=== PATIENT | male | born 1975 | race Hispanic/Latino ===

== ENCOUNTER 2018-10-09 10:24 | Emergency (ER) | payer BC ==
[~2018-10-09] VITALS: Ht 170.2 cm; Wt 150.6 kg
--- NOTE | 2018-10-09 10:47 | NUR ---
called for ultrasound
--- NOTE | 2018-10-09 10:50 | NUR ---
ganesh called states 45 mins eta
[2018-10-09] MEDS ORDERED: HYDROCODONE/APAP 5MG-325MG TAB PO STA (11:25)
--- NOTE | 2018-10-09 11:26 | NUR ---
out to desk multiple times and updated in room and at desk multiple times. explained plan of care multiple times and continues to inquire same questions. again explained plan of care in detail and times and updates. wants pain med for patient and md notified and states will order medicine.
[2018-10-09] MEDS ORDERED: VANCOMYCIN 1GM/NS 250 ML 250 ML IV ONE (12:45)
[2018-10-09] MEDS ORDERED: SODIUM CHLORIDE 0.9% 1000ML 1,000 ML IV SCH (12:45)
[2018-10-09] MEDS ORDERED: PIPER-TAZ 3.375 GM 50 ML IV ONE (12:45)
--- NOTE | 2018-10-09 12:55 | Diagnostic Imaging Report ---
Limited right lower extremity venous ultrasound. COMPARISON: None. INDICATION: Right leg pain. TECHNIQUE/FINDINGS: Markedly limited evaluation with poor visualization of the right superficial and deep femoral veins and common femoral vein. Right GSV is patent with Doppler waveform. Waveform with augmentation is seen within the right common femoral vein, popliteal vein, and anterior and posterior tibial veins. There is an irregular appearing likely lymph node within the right inguinal region measuring up to 1.4 cm short axis. There is diffuse soft tissue edema. IMPRESSION Nondiagnostic study for evaluation of right lower extremity DVT due to body habitus. If there is clinical suspicion for thrombus, CT venogram may be obtained for further evaluation. Irregular appearing likely lymph node measuring up to 1.4 cm short axis in the right inguinal region. This can be further assessed on CT venogram. Diffuse soft tissue edema, suggestive of cellulitis. Signed by: Dr. Dory Schaeffer MD on 10/09/2018 12:51 PM
--- NOTE | 2018-10-09 13:00 | NUR ---
[facility] CALLED FOR TRANSPORT
--- NOTE | 2018-10-09 13:15 | NUR ---
MOT BEING DONE.
== END 2018-10-09 14:53 | disposition short-term general hospital (02) ==
LOC: FSED 10:24
DX: M79.661 Pain in right lower leg (principal); L03.115 Cellulitis of right lower limb; R26.2 Difficulty in walking, not elsewhere classified; L40.9 Psoriasis, unspecified
CPT/HCPCS: 80053; 85025; 87040; 93971 ×2; 99284; J2543; J3370; J7030

== ENCOUNTER 2020-01-05 08:10 | Emergency (ER) | payer BC ==
[~2020-01-05] VITALS: Ht 167.6 cm; Wt 149.7 kg
--- OUTSIDE RECORDS SUMMARY | 2020-01-05 08:13 | XMS REPORT | Summary of Care ---
Author Author [facility] Organization [facility] Address Unknown Phone Unavailable Encounter HQ Juanita(KORIN) [id number] Date(s): 05/16/19 - 05/16/19 [facility] [address] [place] [address]- [phone] Discharge Disposition: Home or Self Care Attending Physician: Luma Chawla MD Referring Physician: Luma Chawla MD Vital Signs Most recent to 1 oldest [Reference Range]: Height 167.64 cm (05/16/19 11:35 AM) Weight 145.455 kg (05/16/19 11:35 AM) Body Mass Index 51.76 m2 (05/16/19 11:35 AM) Problem List No data available for this section Allergies, Adverse Reactions, Alerts No Known Medication Allergies Medications No data available for this section Results No data available for this section Immunizations Given and Recorded Vaccine Date Status Refusal Reason tetanus-diphtheria toxoids 03/15/12 Given Procedures No data available for this section Social History Social History Type Response Smoking Status Never smoker; Exposure to T obacco Smoke None; Cigarette Smoking Last 365 Days No; Reg Smoking Cessation Counseli ng No entered on: 08/01/17 Assessment and Plan No data available for this section
--- OUTSIDE RECORDS SUMMARY | 2020-01-05 08:13 | XMS REPORT | Summary of Care ---
Author Author [facility] Organization [facility] Address Unknown Phone Unavailable Encounter DAISY Grant(KORIN) [id number] Date(s): 10/07/18 - 10/07/18 [facility] [address] [employer] provided by [facility] [employer] [facility] [place] [address]- Discharge Disposition: Left Without Being Seen Attending Physician: Maurice Simmons MD Vital Signs Most recent to 1 2 oldest [Reference Range]: Height 170.18 cm (10/07/18 6:44 PM) Temperature Oral 100.0 DegF 99.4 DegF [96.4-99.1 DegF] *HI* *HI* (10/07/18 8:16 PM) (10/07/18 6:44 PM) Blood Pressure 129/85 mmHg 148/88 mmHg [90-140/60-90 mmHg] (10/07/18 8:16 PM) *HI* (10/07/18 6:44 PM) Respiratory Rate 17 BRMIN 20 BRMIN [14-20 BRMIN] (10/07/18 8:16 PM) (10/07/18 6:44 PM) Peripheral Pulse 114 bpm 119 bpm Rate [60-100 bpm] *HI* *HI* (10/07/18 8:16 PM) (10/07/18 6:44 PM) Weight 147.727 kg (10/07/18 6:44 PM) Body Mass Index 51.01 m2 (10/07/18 6:44 PM) Problem List No data available for this section Allergies, Adverse Reactions, Alerts Substance Reaction Severity Status NKDA Active Medications No data available for this section Results ELECTROLYTES Most recent to 1 oldest [Reference Range]: Sodium Lvl [135-145 140 mEq/L mEq/L] (10/07/18 7:01 PM) Potassium Lvl 4.2 mEq/L [3.5-5.1 mEq/L] (10/07/18 7:01 PM) Chloride Lvl [95-109 103 mEq/L mEq/L] (10/07/18 7: PM) CO2 [24-32 mEq/L] 25 mEq/L (10/07/18: PM) AGAP [10.0-20.0 16.2 mEq/L mEq/L] (10/07/18: PM) CHEM PANEL Most recent to 1 oldest [Reference Range]: Creatinine Lvl 0.99 mg/dL [0.50-1.40 mg/dL] (10/07/18: PM) eGFR 92 mL/min/1.73m2 1 *NA* (10/07/18 PM) BUN [7-22 mg/dL] 16 mg/dL (10/07/18: PM) Glucose Lvl [70-99 90 mg/dL mg/dL] (10/07/18: PM) Calcium Lvl 9.4 mg/dL [8.5-10.5 mg/dL] (10/07/18: PM) 1Result Comment: The eGFR is calculated using the CKD-EPI formula. In most young, healthy individuals the eGFR will be >90 mL/min/1.73m2. The eGFR declines with age. An eGFR of 60-89 may be normal in some populations, particularly the elderly, for whom the CKD-EPI formula has not been extensively validated. Use of the eGFR is not recommended in the following populations: Individuals with unstable creatinine concentrations, including patients and those with serious co-morbid conditions. Patients with extremes in muscle mass or diet. The data above are obtained from the National Kidney Disease Education Program ( NKDEP) which additionally recommends that when the eGFR is used in patients with extremes of body mass index for purposes of drug dosing, the eGFR should be mul tiplied by the estimated BMI. CARDIAC ENZYMES Most recent to 1 oldest [Reference Range]: Troponin-I <0.02 ng/mL [0.00-0.40 ng/mL] (10/07/18 7:01 PM) HEMATOLOGY Most recent to 1 oldest [Reference Range]: WBC [3.7-10.4 K/CMM] 20.8 K/CMM *HI* (10/07/18 7: PM) RBC [4.70-6.10 5.21 M/CMM M/CMM] (10/07/18 7: PM) Hgb [14.0-18.0 g/dL] 15.9 g/dL (10/07/18 7:01 PM) Hct [42.0-54.0 %] 49.0 % (10/07/18 7: PM) MCV [80.0-94.0 fL] 94.1 fL *HI* (10/07/18 7: PM) MCH [27.0-31.0 pg] 30.4 pg (10/07/18 7: PM) MCHC [32.0-36.0 32.3 g/dL g/dL] (10/07/18 7: PM) RDW [11.5-14.5 %] 15.3 % *HI* (10/07/18 7: PM) MPV [7.4-10.4 fL] 8.9 fL (10/07/18 7:01 PM) Platelet [133-450 339 K/CMM K/CMM] (10/07/18 7:01 PM) Segs [45.0-75.0 %] 84.7 % *HI* (10/07/18 7: PM) Lymphocytes 8.4 % [20.0-40.0 %] *LOW* (10/07/18 7:01 PM) Monocytes [2.0-12.0 6.0 % %] (10/07/18 7: PM) Eosinophils [0.0-4.0 0.4 % %] (10/07/18 7:01 PM) Basophils [0.0-1.0 0.5 % %] (10/07/18 7:01 PM) Neutrophils # 17.6 K/CMM [1.5-8.1 K/CMM] *HI* (10/07/18 7:01 PM) Lymphocytes # 1.7 K/CMM [1.0-5.5 K/CMM] (10/07/18 7:01 PM) Monocytes # [0.0-0.8 1.2 K/CMM K/CMM] *HI* (10/07/18 7:01 PM) Eosinophils # 0.1 K/CMM [0.0-0.5 K/CMM] (10/07/18 7:01 PM) Basophils # [0.0-0.2 0.1 K/CMM K/CMM] (10/07/18 7:01 PM) Immunizations Given and Recorded Vaccine Date Status [...]
--- OUTSIDE RECORDS SUMMARY | 2020-01-05 08:13 | XMS REPORT | Summary of Care ---
Author Author [facility] Organization [facility] Address Unknown Phone Unavailable Encounter HQ Augustine_cassidy(KORIN) [id number] Date(s): 05/07/16 - 05/07/16 [facility] [address] [place] [address]- Discharge Disposition: Home or Self Care Attending Physician: Channing Hood MD Referring Physician: Channing Hood MD Vital Signs Most recent to 1 oldest [Reference Range]: Height 170.18 cm (05/07/16 11:48 AM) Weight 152.273 kg (05/07/16 11:48 AM) Body Mass Index 52.58 m2 (05/07/16 11:48 AM) Problem List No data available for this section Allergies, Adverse Reactions, Alerts Substance Reaction Severity Status NKDA Active Medications No data available for this section Results No data available for this section Immunizations Given and Recorded Vaccine Date Status Refusal Reason tetanus-diphtheria toxoids 03/15/12 Given Procedures No data available for this section Social History No data available for this section Assessment and Plan No data available for this section
--- OUTSIDE RECORDS SUMMARY | 2020-01-05 08:13 | XMS REPORT | Summary of Care ---
Author Author [facility] Organization [facility] Address Unknown Phone Unavailable Encounter DAISY Grant(KORIN) [id number] Date(s): 08/01/17 - 08/01/17 [facility] [address] [place] [address]- Discharge Diagnosis: Acute chest pain Discharge Disposition: Home or Self Care Attending Physician: Zeeshan Olivo MD Vital Signs 1 2 3 Most recent to oldest [Reference Range]: 167.64 cm (08/01/17 12:23 PM) Height 98 DegF (08/01/17 5:45 PM) 98.1 DegF (08/01/17 12:23 PM) Temperature Oral [96.4-99.1 DegF] 139/89 mmHg (08/01/17 5:45 PM) 150/90 mmHg *HI* (08/01/17 3:51 PM) 134/82 mmHg (08/01/17 2:00 PM) Blood Pressure [90-140/60-90 mmHg] 17 BRMIN (08/01/17 5:45 PM) 17 BRMIN (08/01/17 3:51 PM) 19 BRMIN (08/01/17 2:00 PM) Respiratory Rate [14-20 BRMIN] 85 bpm (08/01/17 5:45 PM) 90 bpm (08/01/17 3:51 PM) 92 bpm (08/01/17 2:00 PM) Peripheral Pulse Rate [60-100 bpm] 145.455 kg (08/01/17 12:23 PM) Weight 51.76 m2 (08/01/17 12:23 PM) Body Mass Index Problem List No data available for this section Allergies, Adverse Reactions, Alerts Substance Reaction Severity Status NKDA Active Medications aspirin 325 mg, 1 tab, Route: PO, Drug form: TAB, ONCE, Dosing Weight 145.455, kg, Prior ity: STAT, Start date: 08/01/17 14:02:00 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 Start Date: 08/01/17 Stop Date: 08/01/17 Status: Completed aspirin 81 mg tablet, enteric coated 81 mg = 1 tab, PO, Daily, # 30 tab, 1 Refill(s) Start Date: 08/01/17 Status: Ordered Saline Flush 0.9% 10 mL, Route: IVP, Drug Form: INJ, Dosing Weight 145.455, kg, PRN, PRN Line Flus h, Start date: 08/01/17 13:13:00 SMOKEHOUSE OPERATOR, Duration: 30 day, Stop date: 08/31/17 13:1 2:00 SMOKEHOUSE OPERATOR Notes: (Same as: BD Posiflush) Start Date: 08/01/17 Stop Date: 08/01/17 Status: Discontinued Results ELECTROLYTES Most recent to 1 2 oldest [Reference Range]: Sodium Lvl [135-145 135 mEq/L mEq/L] (08/01/17 2:48 PM) Potassium Lvl 4.7 mEq/L [3.5-5.1 mEq/L] (08/01/17 2:48 PM) Chloride Lvl [95-109 106 mEq/L mEq/L] (08/01/17 2:48 PM) CO2 [24-32 mEq/L] 21 mEq/L *LOW* (08/01/17 2:48 PM) AGAP [10.0-20.0 12.7 mEq/L mEq/L] (08/01/17 2:48 PM) CHEM PANEL Most recent to 1 2 oldest [Reference Range]: Creatinine Lvl 0.84 mg/dL [0.50-1.40 mg/dL] (08/01/17 2:48 PM) eGFR 107 mL/min/1.73m2 1 *NA* (08/01/17 2:48 PM) BUN [7-22 mg/dL] 15 mg/dL (08/01/17 2:48 PM) B/C Ratio [6-25] 18 (08/01/17 2:48 PM) Glucose Lvl [70-99 94 mg/dL mg/dL] (08/01/17 2:48 PM) Total Protein 8.3 g/dL [6.4-8.4 g/dL] (08/01/17 2:48 PM) Albumin Lvl [3.5-5.0 3.4 g/dL g/dL] *LOW* (08/01/17 2:48 PM) Globulin [2.7-4.2 4.9 g/dL g/dL] *HI* (08/01/17 2:48 PM) A/G Ratio [0.7-1.6] 0.7 (08/01/17 2:48 PM) Calcium Lvl 8.8 mg/dL [8.5-10.5 mg/dL] (08/01/17 2:48 PM) ALT [0-65 unit/L] 55 unit/L (08/01/17 2:48 PM) AST [0-37 unit/L] 30 unit/L (08/01/17 2:48 PM) Alk Phos [39-136 111 unit/L unit/L] (08/01/17 2:48 PM) Bili Total [0.2-1.3 0.4 mg/dL mg/dL] (08/01/17 2:48 PM) 1Result Comment: The eGFR is calculated [...] BMI. CARDIAC ENZYMES Most recent to 1 2 oldest [Reference Range]: Total CK [12-191 115 unit/L 1 109 unit/L unit/L] (08/01/17 3:53 PM) (08/01/17 2:48 PM) CK MB [0.5-3.6 0.6 ng/mL 0.7 ng/mL ng/mL] (08/01/17 3:53 PM) (08/01/17 2:48 PM) CK MB Index 0.5 0.6 [0.0-2.5] (08/01/17 3:53 PM) (08/01/17 2:48 PM) Troponin-I <0.02 ng/mL <0.02 ng/mL [0.00-0.40 ng/mL] (08/01/17 3:53 PM) (08/01/17 2:48 PM) 1Result Comment: Specimen slightly hemolyzed. 08/01/2017 16:16 [facility] HEMATOLOGY Most recent to 1 2 oldest [Reference Range]: WBC [3.7-10.4 K/CMM] 12.4 K/CMM *HI* (08/01/17 2:48 PM) RBC [4.70-6.10 5.21 M/CMM M/CMM] (08/01/17 2:48 PM) Hgb [14.0-18.0 g/dL] 15.6 g/dL (08/01/17 2:48 PM) Hct [42.0-54.0 %] 48.2 % (08/01/17 2:48 PM) MCV [80.0-94.0 fL] 92.6 fL (08/01/17 2:48 PM) MCH [27.0-31.0 pg] 29.9 pg (08/01/17 2:48 PM) MCHC [32.0-36.0 32.3 g/dL g/dL] (08/01/17 2:48 PM) RDW [11.5-14.5 %] 15.8 % *HI* (08/01/17 2:48 PM) Platelet [133-450 253 K/CMM K/CMM] (08/01/17 2:48 PM) MPV [7.4-10.4 fL] 8.9 fL (08/01/17 2:48 PM) Segs [45.0-75.0 %] 78.5 % *HI* (08/01/17 2:48 PM) Lymphocytes 14.5 % [20.0-40.0 %] *LOW* (08/01/17 2:48 PM) Monocytes [2.0-12.0 6.0 % %] (08/01/17 2:48 PM) Eosinophils [0.0-4.0 0.6 % %] (08/01/17 2:48 PM) Basophils [0.0-1.0 0.4 % %] (08/01/17 2:48 PM) Segs-Bands # 9.7 K/CMM [1.5-8.1 K/CMM] *HI* (08/01/17 2:48 PM) Lymphocytes # 1.8 K/CMM [1.0-5.5 K/CMM] (08/01/17 2:48 PM) Monocytes # [0.0-0.8 0.7 K/CMM K/CMM] (08/01/17 2:48 PM) Eosinophils # 0.1 K/CMM [0.0-0.5 K/CMM] (08/01/17 2:48 PM) Immunizations Given and Recorded Vaccine Date Status Refusal Reason tetanus-diphtheria toxoids 03/15/12 Given Procedures No data available for this section Social History Social History Type Response Smoking Status Never smoker; Exposure to T obacco Smoke None; Cigarette Smoking Last 365 Days No; Reg Smoking Cessation Counseli ng No Assessment and Plan No data available for this section
--- OUTSIDE RECORDS SUMMARY | 2020-01-05 08:13 | XMS REPORT | Summary of Care ---
Author Author [facility] Organization [facility] Address Unknown Phone Unavailable Encounter DAISY Grant(KORIN) [id number] Date(s): 08/29/19 - 08/29/19 [facility] [address] [phone]- [phone] Discharge Disposition: Home or Self Care Attending Physician: Liliana Dias MD Vital Signs Most recent to 1 oldest [Reference Range]: Height 170.18 cm (08/29/19 11:03 AM) Temperature Oral 98.5 DegF [96.4-99.1 DegF] (08/29/19 11:03 AM) Blood Pressure 121/77 mmHg [90-140/60-90 mmHg] (08/29/19 11:03 AM) Peripheral Pulse 99 bpm Rate [60-100 bpm] (08/29/19 11:03 AM) Weight 150.909 kg (08/29/19 11:03 AM) Body Mass Index 52.11 m2 (08/29/19 11:03 AM) Problem List Condition Effective Dates Status Health Status Informan t Morbid Active obesity(Confirmed) Allergies, Adverse Reactions, Alerts No Known Medication Allergies Medications albuterol 90 mcg/inh inhalation aerosol 1 puff, INHALER, Q4H, PRN for wheezing/cough, # 8.5 gm, 0 Refill(s), Pharmacy: [id number] #[id number] Start Date: 08/30/19 Status: Ordered Azithromycin 5 Day Dose Pack 250 mg oral tablet See Instructions, Take 2 tablets by mouth the first day then 1 tablet by mouth d ays 2-5., X 5 day, # 6 tab, 0 Refill(s), Pharmacy: [facility] #[id number] Start Date: 08/29/19 Stop Date: 09/03/19 Status: Ordered brompheniramine/dextromethorphan/PSE 2 mg-10 mg-30 mg/5 mL oral syrup 5 mL, PO, Q4H, PRN cough, X 8 day, # 240 mL, 0 Refill(s), Pharmacy: [facility] #[id number] Start Date: 08/29/19 Stop Date: 09/06/19 Status: Ordered Flonase 0.05 mg/inh nasal spray 1 spray, NASAL, BID, # 16 gm, 0 Refill(s), Pharmacy: [facility] #[id number] Start Date: 08/29/19 Status: Ordered Tessalon 200 mg oral capsule 200 mg = 1 cap, PO, TID, X 7 day, # 21 cap, 0 Refill(s), Pharmacy: [facility] #[id number] Start Date: 08/29/19 Stop Date: 09/05/19 Status: Ordered Results No data available for this section Immunizations Given and Recorded Vaccine Date Status Refusal Reason tetanus-diphtheria toxoids 03/15/12 Given Procedures No data available for this section Social History Social History Type Response Smoking Status Never smoker; Exposure to T obacco Smoke None; Cigarette Smoking Last 365 Days No; Reg Smoking Cessation Counseli ng No entered on: 08/29/19 Assessment and Plan No data available for this section
--- OUTSIDE RECORDS SUMMARY | 2020-01-05 08:13 | XMS REPORT | Summary of Care ---
Author Author [facility] Organization [facility] Address Unknown Phone Unavailable Encounter HQ Juanita(FIN) [id number] Date(s): 07/06/19 - 07/06/19 [facility] [address] [address] [phone]- [phone] Discharge Disposition: Home or Self Care Attending Physician: Liliana Dias MD Vital Signs Most recent to 1 oldest [Reference Range]: Height 170.18 cm (07/06/19 2:53 PM) Temperature Oral 98.7 DegF [96.4-99.1 DegF] (07/06/19 2:53 PM) Blood Pressure 126/80 mmHg [90-140/60-90 mmHg] (07/06/19 2:53 PM) Peripheral Pulse 83 bpm Rate [60-100 bpm] (07/06/19 2:53 PM) Weight 149.148 kg (07/06/19 2:53 PM) Body Mass Index 51.5 m2 (07/06/19 2:53 PM) Problem List Condition Effective Dates Status Health Status Informan t Morbid Active obesity(Confirmed) Allergies, Adverse Reactions, Alerts No Known Medication Allergies Medications cefdinir 300 mg oral capsule 300 mg = 1 cap, PO, BID, X 10 day, # 20 cap, 0 Refill(s), Pharmacy: [id number] Start Date: 07/06/19 Stop Date: 07/16/19 Status: Ordered Results No data available for this section Immunizations Given and Recorded Vaccine Date Status Refusal Reason tetanus-diphtheria toxoids 03/15/12 Given Procedures No data available for this section Social History Social History Type Response Smoking Status Never smoker; Exposure to T obacco Smoke None; Cigarette Smoking Last 365 Days No; Reg Smoking Cessation Counseli mickey No entered on: 07/06/19 Assessment and Plan No data available for this section
--- OUTSIDE RECORDS SUMMARY | 2020-01-05 08:13 | XMS REPORT | Continuity of Care Document ---
Author Author Juan Luis Simeon [employer] Address Unknown Phone Unavailable Care Team Providers Care Human Resource Assistant Name Role Phone treadalong Information Exchange Unavailable Un available Problems Problem Status Onset Date Classification Date Reported Comments Source R07.9 2 DAY PROTOCOL AI TO STEPHANIE Active 05/11/2019 [facility] CHEST PAIN Active 10/07/2018 [facility] Chest pain, unspecified 08/01/2017 08/04/2017 [facility] Discharge Diagnosis: Moderate nausea and vomiting 08/25/2016 08/28/2016 [facility] Discharge Diagnosis: Acute gastritis 08/25/2016 08/28/2016 [facility] VOMITING Active 08/25/2016 [facility] DX: R06.02=SHORTNESS OF BREATH Active 05/01/2016 [facility] Morbid obesity (disorder) Acti ve Problem [facility] Medications Medication Details Route Status Patient Instructions Ordering Provider Order Date Source albuterol 90 mcg/inh inhalation aerosol 1 puff, INHALER, Q4H, PRN for wheezing/cough, # 8.5 gm, 0 Refill(s), [facility]acy: [facility][id number] Active 08/30/[facility] Fluticasone propionate 0.05 MG/ACTUAT Me tered Dose Nasal [place] [Flonase] 1 spray, NASAL, BID, # 16 gm, 0 Refill(s ), Pharmacy: [facility] #[id number] Active 08/29/2019 [facility] Azithromycin 5 Day Dose Pack 250 mg oral tablet See Instructions, Take 2 tablets by mouth the first day then 1 tablet by mouth days 2-5., X 5 day, # 6 tab, 0 Refill(s), Pharmacy: [facility] #[id number] Active 08/29/2019 [facility] benzonatate 200 MG Oral Capsule [Tessalon] 200 mg = 1 cap, PO, TID, X 7 day, # 21 cap, 0 Refill(s), Pharmacy: [facility] #[id number] Active 08/29/2019 [facility] Brompheniramine Maleate 0.4 MG/ML / Dext romethorphan Hydrobromide 2 MG/ML / Pseudoephedrine Hydrochloride 6 MG/ML Oral Solution 5 mL, PO, Q4H, PRN cough, X 8 day, # 240 mL, 0 Refill(s), Pharmacy: [facility] #[id number] Active 08/29/2019 [facility] cefdinir 300 MG Oral Capsule 3 00 mg = 1 cap, PO, BID, X 10 day, # 20 cap, 0 Refill(s), Pharmacy: [facility] #[id number] Active 07/06/2019 [facility] aspirin 81 mg tablet, enteric coated 81 mg = 1 tab, PO, Daily, # 30 tab, 1 Refill(s) Active 08/01/2017 [facility] Aspirin Notes: Take with food. Inactive 08/01/2017 [facility] Saline Flush 0.9% Notes: (Same as: BD Posiflush) Inactive 08/01/2017 [facility] tramadol hydrochloride 50 MG Oral Tablet 50 mg = 1 tab, PO, Q6H, X 5 day, # 20 tab, 0 Refill(s) Active 08/25/2016 [facility] Famotidine 20 MG Oral Tablet [Pepcid] 20 mg = 1 tab, PO, BID, # 28 tab, 0 Refill(s) Active 08/25/2016 [facility] Ondansetron 4 MG Disintegrating Tablet [Zofran] 4 mg = 1 tab, PO, Q8H, PRN Nausea and Vomiting, Dissolve tab under tongue, X 5 day, # 15 tab, 0 Refill(s) Active 08/25/2016 [facility] Reglan 10 mg, Route: IVP, Drug form: INJ, ONCE, Dosing Weight 153.182, kg, Priority: STAT, Start date: 08/25/16 13:38:00 [employer]IST, Stop date: 08/25/16 13:38:00 [employer]IST Inactive 08/25/2016 [facility] Saline Flush 0.9% Notes: Same as: BD Posiflush Sterile Inactive 08/25/2016 [facility] Sodium Chloride 0.154 MEQ/ML Injectable Solution 1,000 mL, Infuse Over: 1 hr, Route: IV, ONCE, Priority: STAT, Dosing Weight 153.182 kg, Start date: 08/25/16 9:58:00 IND[employer]RIAL RELATIONS SPECIALIST, Duration: 1 doses or times, Stop date: 08/25/16 9:58:00 [employer]RI[employer] RELATIONS SPECIALIST Inactive 08/25/2016 [facility] Famotidine 20 mg, Route: IVP, ONCE, Dosing Weight 153.182, kg, Priority: STAT, Start date: 08/25/16 9:58:00 IND[employer]RIAL RELATIONS SPECIALIST, Stop date: 08/25/16 9:58:00 [employer]RIAL RELATIONS SPECIALIST Inactive 08/25/2016 [facility] Ondansetron 4 mg, Route: IVP, ONCE, Dosing Weight 153.182, kg, Priority: STAT, Start date: 08/25/16 9:58:00 INDUSTRIAL RELATIONS SPECIALIST, Stop date: 08/25/16 9:58:00 IND[employer]RIAL RELATIONS SPECIALIST Inactive 08/25/2016 [facility] Morphine 4 mg, Route: IVP, ONC E, Dosing Weight 153.182, kg, Priority: STAT, Start date: 08/25/16 9:58:00 IND[employer]RIAL RELATIONS SPECIALIST, Stop date: 08/25/16 9:58:00 IND[employer]RIAL RELATIONS SPECIALIST Inactive 08/25/2016 [facility] Allergies, Adverse Reactions, Alerts Substance Category Reaction Severity Reaction type Status Date Reported Comments Source No Known Medication Allergies Assertion Drug aller gy [facility] Immunizations Immunization Date Given Site Status Last Updated Comments Source tetanus-diphtheria toxoids [facility]he[facility] tox[facility] Right Deltoid completed [facility] Results Order Name Results Value Reference Range Date Interpretation Comments Source CARDIAC ENZYMES Troponin-I <0.02 0.00 - 0.40 10/08/2018 [facility] ELECTROLYTES AGAP 16.2 10.0 - 20.0 10/08/2018 [facility] ELECTROLYTES eGFR 92 10/08/2018 Result Comment: The eGFR is calculated using the [...] from the National Kidney Disease Education Program (NKDEP) which additionally recommends that when the eGFR is used in patients with extremes of body mass index for purposes of drug dosing, the eGFR should be multiplied by the estimated BMI. [facility] ELECTROLYTES CO2 25 24 - 32 10/08/2018 [facility] ELECTROLYTES Chloride Lvl 103 95 - 109 10/08/2018 [facility] ELECTROLYTES Potassium Lvl 4.2 3.5 - 5.1 10/08/2018 [facility] ELECTROLYTES Sodium Lvl 140 135 - 145 10/08/2018 [facility] ELECTROLYTES Calcium Lvl 9.4 8.5 - 10.5 10/08/2018 [facility] ELECTROLYTES Creatinine Lvl 0.9 9 0.50 - 1.40 10/08/2018 [facility] ELECTROLYTES BUN 16 7 - 22 10/08/2018 [facility] ELECTROLYTES Glucose Lvl 90 70 - 99 10/08/2018 [facility] HEMATOLOGY MCHC 32.3 32.0 - 36.0 10/08/2018 [facility] HEMATOLOGY Platelet 339 133 - 450 10/08/2018 [facility] HEMATOLOGY MPV 8.9 7.4 - 10.4 10/08/2018 [facility] HEMATOLOGY RDW 15.3 11.5 - 14.5 10/08/2018 [facility] HEMATOLOGY RBC 5.21 4.70 - 6.10 10/08/2018 [facility] HEMATOLOGY Hgb 15.9 14.0 - 18.0 10/08/2018 [facility] HEMATOLOGY Hct 49.0 42.0 - 54.0 10/08/2018 [facility] HEMATOLOGY MCV 94.1 80.0 - 94.0 10/08/2018 [facility] HEMATOLOGY MCH 30.4 27.0 - 31.0 10/08/2018 [facility] HEMATOLOGY WBC 20.8 3.7 - 10.4 10/08/2018 [facility] HEMATOLOGY Basophils # 0.1 0.0 - 0.2 10/08/2018 [facility] HEMATOLOGY Neutrophils # 17.6 1.5 - 8.1 10/08/2018 [facility] HEMATOLOGY Lymphocytes # 1.7 1.0 - 5.5 10/08/2018 [facility] HEMATOLOGY Monocytes # 1.2 0.0 - 0.8 10/08/2018 [facility] HEMATOLOGY Eosinophils # 0.1 0.0 - 0.5 10/08/2018 [facility] HEMATOLOGY Basophils 0.5 0.0 - 1.0 10/08/2018 [facility] HEMATOLOGY Eosinophils 0.4 0.0 - 4.0 10/08/2018 [facility] HEMATOLOGY Lymphocytes 8.4 20.0 - 40.0 10/08/2018 [facility] HEMATOLOGY Monocytes 6.0 2.0 - 12.0 10/08/2018 [facility] HEMATOLOGY Segs 84.7 45.0 - 75.0 10/08/2018 [facility] CARDIAC ENZYMES CK MB 0.6 0.5 - 3.6 08/01/2017 [facility] CARDIAC ENZYMES Total CK 115 12 - 191 08/01/2017 Result Comment: Specimen slightly hemoly zed. 08/01/2017 16:16 [facility] CARDIAC ENZYMES Troponin-I <0.02 0.00 - 0.40 08/01/2017 [facility] CARDIAC ENZYMES CK MB Index 0.5 0.0 - 2.5 08/01/2017 [facility] CARDIAC ENZYMES CK MB Index 0.6 0.0 - 2.5 08/01/2017 [facility] CARDIAC ENZYMES CK MB 0.7 0.5 - 3.6 08/01/2017 [facility] CARDIAC ENZYMES Troponin-I <0.02 0.00 - 0.40 08/01/2017 [facility] CARDIAC ENZYMES Total CK 109 12 - 191 08/01/2017 [facility] CHEM PANEL AST 30 0 - 37 08/01/2017 [facility] CHEM PANEL Alk Phos 111 39 - 136 08/01/2017 [facility] CHEM PANEL Albumin Lvl 3.4 3.5 - 5.0 08/01/2017 [facility] CHEM PANEL ALT 55 0 - 65 08/01/2017 [facility] CHEM PANEL Bili Total 0.4 0.2 - 1.3 08/01/2017 [facility] CHEM PANEL B/C Ratio 18 6 - 25 08/01/2017 [facility] CHEM PANEL Globulin 4.9 2.7 - 4.2 08/01/2017 [facility] CHEM PANEL A/G Ratio 0.7 0.7 - 1.6 08/01/2017 [facility] CHEM PANEL AGAP 12.7 10.0 - 20.0 08/01/2017 [facility] CHEM PANEL Glucose Lvl 94 70 - 99 08/01/2017 [facility] CHEM PANEL BUN 15 7 - 22 08/01/2017 [facility] CHEM PANEL eGFR 107 08/01/2017 Result Comment: The eGFR is calculated using the [...] from the National Kidney Disease Education Program (NKDEP) which additionally recommends that when the eGFR is used in patients with extremes of body mass index for purposes of drug dosing, the eGFR should be multiplied by the estimated BMI. [facility] CHEM PANEL Creatinine Lvl 0.84 0.50 - 1.40 08/01/2017 [facility] CHEM PANEL Sodium Lvl 135 135 - 145 08/01/2017 [facility] CHEM PANEL Potassium Lvl 4.7 3.5 - 5.1 08/01/2017 [facility] CHEM PANEL Chloride Lvl 106 95 - 109 08/01/2017 [facility] CHEM PANEL CO2 21 24 - 32 08/01/2017 [facility] CHEM PANEL Calcium Lvl 8.8 8.5 - 10.5 08/01/2017 [facility] CHEM PANEL Total Protein 8.3 6.4 - 8.4 08/01/2017 [facility] HEMATOLOGY Monocytes # 0.7 0.0 - 0.8 08/01/2017 [facility] HEMATOLOGY Segs-Bands # 9.7 1.5 - 8.1 08/01/2017 [facility] HEMATOLOGY Basophils 0.4 0.0 - 1.0 08/01/2017 [facility] HEMATOLOGY Eosinophils 0.6 0.0 - 4.0 08/01/2017 [facility] HEMATOLOGY Lymphocytes # 1.8 1.0 - 5.5 08/01/2017 [facility] HEMATOLOGY Eosinophils # 0.1 0.0 - 0.5 08/01/2017 [facility] HEMATOLOGY Lymphocytes 14.5 20.0 - 40.0 08/01/2017 [facility] HEMATOLOGY Segs 78.5 45.0 - 75.0 08/01/2017 [facility] HEMATOLOGY Monocytes 6.0 2.0 - 12.0 08/01/2017 [facility] HEMATOLOGY MPV 8.9 7.4 - 10.4 08/01/2017 [facility] HEMATOLOGY Platelet 253 133 - 450 08/01/2017 [facility] MCHC 32.3 32.0 - 36.0 08/01/2017 [facility] RDW 15.8 11.5 - 14.5 08/01/2017 [facility] HEMATOLOGY MCV 92.6 80.0 - 94.0 08/01/2017 [facility] HEMATOLOGY Hct 48.2 42.0 - 54.0 08/01/2017 [facility] Hgb 15.6 14.0 - 18.0 08/01/2017 [facility] MCH 29.9 27.0 - 31.0 08/01/2017 [facility] WBC 12.4 3.7 - 10.4 08/01/2017 [facility] RBC 5.21 4.70 - 6.10 08/01/2017 [facility] URINE AND STOOL UA Color Ltyellow 08/25/2016 [facility] URINE AND STOOL UA Leuk Est Negative (08/25/16 12:15 PM) Negative 08/25/2016 [facility] URINE AND STOOL UA Blood Negative (08/25/16 12:15 PM) Negative 08/25/2016 [facility] URINE AND STOOL UA Nitrite Negative (08/25/16 12:15 PM) Negative 08/25/2016 [facility] URINE AND STOOL UA Sq Epi Occasional /LPF Few /LPF 08/25/2016 [facility] URINE AND STOOL UA WBC 1 0 - 5 08/25/2016 [facility] URINE AND STOOL UA RBC 1 0 - 2 08/25/2016 [facility] URINE AND STOOL UA Mucus Few /LPF None Seen /LPF 08/25/2016 [facility] URINE AND STOOL UA Urobilinogen <=1.0 mg/dL 0.1 - 1.0 08/25/[address] [facility] [address] URINE AND STOOL UA Protein Negative mg/dL Negative mg/dL 08/25/[address] [facility] [address] URINE AND STOOL UA pH 7.0 5.0 - 8.0 08/25/2016 [facility] URINE AND STOOL UA Turbidity Clear (08/25/16 12:15 PM) Clear 08/25/2016 [facility] URINE AND STOOL UA Spec Grav 1.028 <=1.030 08/25/2016 [facility] URINE AND STOOL UA Glucose Negative mg/dL Negative mg/dL 08/25/[address] [facility] [address] URINE AND STOOL UA Ketones Negative mg/dL Negative mg/dL 08/25/[address] [facility] [address] URINE AND STOOL UA Bili Negative *NA* (08/25/16 12:15 PM) Negative 08/25/2016 [facility] CHEM PANEL Amylase Lvl 72 25 - 115 08/25/2016 [facility] CHEM PANEL Lipase Lvl 88 73 - 393 08/25/2016 [facility] ELECTROLYTES AGAP 14.0 10.0 - 20.0 08/25/2016 [facility] ELECTROLYTES B/C Ratio 15 6 - 25 08/25/2016 [facility] ELECTROLYTES Globulin 5.0 2.7 - 4.2 08/25/2016 [facility] ELECTROLYTES A/G Ratio 0.6 0.7 - 1.6 08/25/2016 [facility] ELECTROLYTES eGFR 98 08/25/2016 Result Comment: The eGFR is calculated using the [...] from the National Kidney Disease Education Program (NKDEP) which additionally recommends that when the eGFR is used in patients with extremes of body mass index for purposes of drug dosing, the eGFR should be multiplied by the estimated BMI. [facility] ELECTROLYTES Total Protein 8.2 6.4 - 8.4 08/25/2016 [facility] ELECTROLYTES Albumin Lvl 3.2 3.5 - 5.0 08/25/2016 [facility] ELECTROLYTES ALT 60 0 - 65 08/25/2016 [facility] ELECTROLYTES Calcium Lvl 9.0 8.5 - 10.5 08/25/2016 [facility] ELECTROLYTES Bili Total 0.4 0.2 - 1.3 08/25/2016 [facility] ELECTROLYTES AST 27 0 - 37 08/25/2016 [facility] ELECTROLYTES Alk Phos 109 39 - 136 08/25/2016 [facility] ELECTROLYTES Creatinine Lvl 0.9 5 0.50 - 1.40 08/25/2016 [facility] ELECTROLYTES Sodium Lvl 137 135 - 145 08/25/2016 [facility] ELECTROLYTES Potassium Lvl 4.0 3.5 - 5.1 08/25/2016 [facility] ELECTROLYTES BUN 14 7 - 22 08/25/2016 [facility] ELECTROLYTES Glucose Lvl 125 70 - 99 08/25/2016 [facility] ELECTROLYTES Chloride Lvl 101 95 - 109 08/25/2016 [facility] ELECTROLYTES CO2 26 24 - 32 08/25/2016 [facility] HEMATOLOGY MCHC 32.9 32.0 - 36.0 08/25/2016 [facility] HEMATOLOGY MCH 29.9 27.0 - 31.0 08/25/2016 [facility] HEMATOLOGY Hgb 14.2 14.0 - 18.0 08/25/2016 [facility] HEMATOLOGY MCV 91.1 80.0 - 94.0 08/25/2016 [facility] HEMATOLOGY Hct 43.2 42.0 - 54.0 08/25/2016 [facility] HEMATOLOGY RDW 15.0 11.5 - 14.5 08/25/2016 [facility] HEMATOLOGY MPV 9.0 7.4 - 10.4 08/25/2016 [facility] HEMATOLOGY Platelet 361 133 - 450 08/25/2016 [facility] HEMATOLOGY RBC 4.74 4.70 - 6.10 08/25/2016 [facility] HEMATOLOGY WBC 11.5 3.7 - 10.4 08/25/2016 [facility] HEMATOLOGY Basophils # 0.1 0.0 - 0.2 08/25/2016 [facility] HEMATOLOGY Segs-Bands # 8.4 1.5 - 8.1 08/25/2016 [facility] HEMATOLOGY Basophils 0.6 0.0 - 1.0 08/25/2016 [facility] HEMATOLOGY Eosinophils # 0.1 0.0 - 0.5 08/25/2016 [facility] HEMATOLOGY Monocytes # 0.8 0.0 - 0.8 08/25/2016 [facility] HEMATOLOGY Lymphocytes # 2.0 1.0 - 5.5 08/25/2016 [facility] HEMATOLOGY Eosinophils 1.2 0.0 - 4.0 08/25/2016 [facility] HEMATOLOGY Monocytes 6.8 2.0 - 12.0 08/25/2016 [facility] HEMATOLOGY Lymphocytes 17.8 20.0 - 40.0 08/25/2016 [facility] HEMATOLOGY Segs 73.6 45.0 - 75.0 08/25/2016 [facility] Pathology Reports No Data Provided for This Section Diagnostic Reports Report Value Date Source Cardiac SPECT multi studies NM PROCEDURE: Rest/Stress MYOCARDIAL PERFUSION SCAN with Lexiscan. INDICATION: chest pain READING LOCATION: [facility] PROTOCOL: The patient underwent rest and post stress imaging in a two day protocol. 33mCi of Tc-99m sestamibi was injected 1 minute after a 0.4mg/5ml dose of intravenous Lexiscan. The patient's resting heart rate of 88 beats/minute increased to a peak rate of 115 beats/minute (65% of MPHR). Blood pressure reached a maximum of 130/80 mm Hg. Other stress and monitoring data are reported separately. [place] SPECT images were obtained after stress injection. 33mCi of Tc-99m sestamibi was injected i ntravenously at rest, and tomographic (SPECT) images were obtained. FINDINGS: Images obtained after resting and stress injections of tracer show normal tracer distribution in the LV myocardium. LV and RV size appear normal. Gated images obtained at rest after stress injection show normal LV wall motion and thickening. The QGS LVEF is 67%. IMPRESSION: Normal perfusion study. Normal resting LV function. 05/16/2019 [facility] Chest 2 views DX EXAM: XR CHES T 2 VIEWS DATE: 10/07/2018 18:52 IND[employer]RI[employer]ATIONS SPECIALIST INDICATION: - chest pain COMPARISON: 08/01/2017 TECHNIQUE: PA and lateral chest radiographs FINDINGS: Lines and tubes: None. Lungs and pleura: No pulmonary or pleural based abnormality is identified. Heart and mediastinum: The heart size is normal. The mediastinal contours are normal. Bones: No acute bony abnormality is identified. IMPRESSION: No acute cardiopulmonary abnormality. 10/07/2018 [facility] Chest 1view DX PROCEDURE: Sing le view chest. Clinical Indication: - chest pain Comparison: None. FINDINGS: The mediastinal width is normal in size. On this single frontal view of the chest, the cardiac silhouette appears upper limits of normal to mildly prominent. No edema or vascular congestion. No pneumonia, effusion, or pneumothorax. The visualized osseous structures are unremarkable. IMPRESSION: 1. No focal lung disease. 2. On this single frontal view of the ch est the cardiac silhouette appears upper limits of normal to mildly prominent. 08/01/2017 [facility] ED Abdomen/Pelvis IV contrast only CT . Patient Name: DIONNE BENOIT : 1975; Age: 40 years y/o Male MR: [id number] Study: ED Abdomen/Pelvis IV contrast only CT 08/25/2016 9:58 AM [employer]IST Ordering Physician: Juana Srivastava MD Clinical Indication: Abdominal pain, acute diffuse, pt states he's been having a lot vomiting since yday. ; 100cc omni CT DLP 2227.03 mGy-cm Comparison: None TECHNIQUE: Helical imaging was performed from the diaphragm through the symphysis with multiplanar reformations obtained after intravenous administration of 100 mL of Omnipaque. FINDINGS: LOWER CHEST: The lung bases are clear without significant pleural effusion bilaterally. SOLID ORGANS: No focal liver or splenic abnormality. 7 mm left renal lower pole calyceal nonobstructive calculus. Right kidney normal. No pelvocaliectasis or ureterectasis bilaterally. The adrenals, pancreas are unremarkable. Prior cholecystectomy. No obvious biliary ductal dilatation. RETROPERITONEUM: No abdominal or pelvic adenopathy. The abdominal aorta is unremarkable. PELVIS: No pelvic mass. Bladder is unremarkable. BOWEL: No bowel abnormality identified in the abdomen or pelvis. The appendix is unremarkable. PERITONEUM: No free intraperitoneal air. No abnormal fluid collection identified in the abdomen or pelvis. Diastases of the rectus muscles by 7 cm with [place] umbilical ventral hernia containing only fat. MUSCULOSKELETAL: No significant osseous abnormality. IMPRESSION: No acute findings. SL: [id number] 08/25/2016 [facility] Consultation Notes No Data Provided for This Section Discharge Summaries No Data Provided for This Section History and Physicals No Data Provided for This Section Vital Signs Vital Sign Value Date Comments Source Systolic (mm Hg) 121 08/29/2019 [facility] Diastolic (mm Hg) 77 08/29/2019 [facility] Heart Rate 99 08/29/2019 [facility] Temperature Oral (F) 98.5 F 08/29/2019 [facility] Height 170.18 cm 08/29/2019 [facility] Weight 150.909 08/29/2019 [facility] BMI Calculated 52.11 08/29/2019 [facility] Systolic (mm Hg) 126 07/06/2019 [facility] Diastolic (mm Hg) 80 07/06/2019 [facility] Heart Rate 83 07/06/2019 [facility] Temperature Oral (F) 98.7 F 07/06/2019 [facility] Height 170.18 cm 07/06/2019 [facility] Weight 149.148 07/06/2019 [facility] BMI Calculated 51.5 07/06/2019 [facility] Height 167.64 cm 05/16/2019 [facility] Weight 145.455 05/16/2019 [facility] BMI Calculated 51.76 05/16/2019 [facility] Temperature Oral (F) 100.0 F 10/08/2018 [facility] Heart Rate 114 10/08/2018 [facility] Respitory Rate 17 10/08/2018 [facility] Systolic (mm Hg) 129 10/08/2018 [facility] Diastolic (mm Hg) 85 10/08/2018 [facility] Height 170.18 cm 10/08/2018 [facility] Weight 147.727 10/08/2018 [facility] BMI Calculated 51.01 10/08/2018 [facility] Heart Rate 119 10/08/2018 [facility] Respitory Rate 20 10/08/2018 [facility] Temperature Oral (F) 99.4 F 10/08/2018 [facility] Systolic (mm Hg) 148 10/08/2018 [facility] Diastolic (mm Hg) 88 10/08/2018 [facility] Respitory Rate 17 08/01/2017 [facility] Systolic (mm Hg) 139 08/01/2017 [facility] Diastolic (mm Hg) 89 08/01/2017 [facility] Temperature Oral (F) 98 F 08/01/2017 [facility] Heart Rate 85 08/01/2017 [facility] Heart Rate 90 08/01/2017 [facility] Respitory Rate 17 08/01/2017 [facility] Systolic (mm Hg) 150 08/01/2017 [facility] Diastolic (mm Hg) 90 08/01/2017 [facility] Respitory Rate 19 08/01/2017 [facility] Systolic (mm Hg) 134 08/01/2017 [facility] Diastolic (mm Hg) 82 08/01/2017 [facility] Heart Rate 92 08/01/2017 [facility] Weight 145.455 08/01/2017 [facility] BMI Calculated 51.76 08/01/2017 [facility] Height 167.64 cm 08/01/2017 [facility] Temperature Oral (F) 98.1 F 08/01/2017 [facility] Heart Rate 89 08/25/2016 [facility] Respitory Rate 18 08/25/2016 [facility] Systolic (mm Hg) 109 08/25/2016 [facility] Diastolic (mm Hg) 62 08/25/2016 [facility] Temperature Oral (F) 98.1 F 08/25/2016 [facility] Heart Rate 99 08/25/2016 [facility] Systolic (mm Hg) 138 08/25/2016 [facility] Diastolic (mm Hg) 87 08/25/2016 [facility] Respitory Rate 18 08/25/2016 [facility] Height 170.18 cm 08/25/2016 [facility] BMI Calculated 52.89 08/25/2016 [facility] Weight 153.182 08/25/2016 [facility] Temperature Oral (F) 98.7 F 08/25/2016 [facility] BMI Calculated 52.58 05/07/2016 [facility] Height 170.18 cm 05/07/2016 [facility] Weight 152.273 05/07/2016 [facility] Encounters Location Location Details Encounter Type Encounter Number Reason For Visit Attending Provider ADM Date DC Date Status Source [facility] Outpatient [id number] Channing Hood 05/07/2016 05/08/2016 [facility] [id number] Juanawestley Srivastava 08/25/2016 08/25/2016 [facility] Emergency [id number] Kbbluevijay Olivo 08/01/2017 08/02/2017 [facility] Emergency [id number] Maurice Simmons 10/08/2018 10/08/2018 [facility] [id number] Luma Chawal 05/16/2019 05/17/2019 [facility] Outpatient [id number] Lorubina Dias 07/06/2019 [facility] Outpatient [id number] Loan Dias 07/06/2019 07/07/2019 [facility] [id number] Siomara Moy 08/29/2019 [facility] Outpatient [id number] Loan Dias 08/29/2019 08/30/2019 [facility] Procedures No Data Provided for This Section Assessment and Plan No Data Provided for This Section Plan of Care No Data Provided for This Section Social History Social History Date Source Social History TypeResponse Smoking Status Never smoker; Exposure to Tobacco Smoke None; Cigarette Smoking Last 365 Days No; Reg Smoking Cessation Counseling No entered on: 08/29/19 08/29/2019 [facility] Social History TypeResponse Smoking Status Never smoker; Exposure to Tobacco Smoke None; Cigarette Smoking Last 365 Days No; Reg Smoking Cessation Counseling No entered on: 08/01/17 08/01/2017 [facility] Social History TypeResponse Smoking Status Never smoker; Exposure to Tobacco Smoke None; Cigarette Smoking Last 365 Days No; Reg Smoking Cessation Counseling No entered on: 08/01/17 08/01/2017 [facility] Family History No Data Provided for This Section Advance Directives No Data Provided for This Section Functional Status No Data Provided for This Section
--- OUTSIDE RECORDS SUMMARY | 2020-01-05 08:13 | XMS REPORT | Clinical Summary ---
Author Author [facility] Address Unknown Phone Unavailable Care Team Providers Care Hospital Technician Name Role Phone Soren Barajas MD PCP [phone] Allergies No Known Allergies Medications No known medications Active Problems Problem Noted Date Cellulitis 10/10/2018 Cellulitis of right leg 10/10/2018 Family History Medical History Relation Name Comments Diabetes Father Early Father Diabetes Paternal Grandmother Relation Name Status Comments Father Paternal Grandmother Social History Date Tobacco Use Types Packs/Day Years Used Never Smoker Alcohol Use Drinks/Week oz/Week Comments No Alcohol Habits Answer Date Recorded How often do you have a drink containing alcohol? Never 10/09/2018 How many drinks containing alcohol do you have on No t asked a typical day when you are drinking? How often do you have six or more drinks on one Not asked occasion? Sex Assigned at Date Recorded Not on file Industry Job Start Date Occupation Not on file Not on file Not on file Travel End Travel History Travel Start No recent travel history available. Last Filed Vital Signs Not on file Plan of Treatment Not on file Results Not on fileafter 01/04/2019 Insurance Payer Benefit Subscriber ID Type Phone Address Plan / Group BLUE CROSS/BLUE SHIELD BCBS PPO xxxxxxxxxxxx PPO [address] [place] [address] CHOICE
--- OUTSIDE RECORDS SUMMARY | 2020-01-05 08:13 | XMS REPORT | Summary of Care ---
Author Author [facility] Organization [facility] Address Unknown Phone Unavailable Encounter DAISY Grant(KORIN) [id number] Date(s): 08/25/16 - 08/25/16 [facility] [address] [place] [address]- [phone] Discharge Diagnosis: Moderate nausea and vomiting Discharge Diagnosis: Acute gastritis Discharge Disposition: Home or Self Care Attending Physician: Juana Srivastava MD Vital Signs Most recent to 1 2 oldest [Reference Range]: Height 170.18 cm (08/25/16 9:48 AM) Temperature Oral 98.1 DegF 98.7 DegF [96.4-99.1 DegF] (08/25/16 2:00 PM) (08/25/16 9:48 AM) Blood Pressure 109/62 mmHg 138/87 mmHg [90-140/60-90 mmHg] (08/25/16 2:00 PM) (08/25/16 9:48 AM) Respiratory Rate 18 BRMIN 18 BRMIN [14-20 BRMIN] (08/25/16 2:00 PM) (08/25/16 9:48 AM) Peripheral Pulse 89 bpm 99 bpm Rate [60-100 bpm] (08/25/16 2:00 PM) (08/25/16 9:48 AM) Weight 153.182 kg (08/25/16 9:48 AM) Body Mass Index 52.89 m2 (08/25/16 9:48 AM) Problem List No data available for this section Allergies, Adverse Reactions, Alerts Substance Reaction Severity Status NKDA Active Medications famotidine 20 mg, Route: IVP, ONCE, Dosing Weight 153.182, kg, Priority: STAT, Start date: 08/25/16 9:58:00 EVENT DESIGNER, Stop date: 08/25/16 9:58:00 EVENT DESIGNER Start Date: 08/25/16 Stop Date: 08/25/16 Status: Completed morphine Sulfate 4 mg, Route: IVP, ONCE, Dosing Weight 153.182, kg, Priority: STAT, Start date: 0 08/25/16 9:58:00 EVENT DESIGNER, Stop date: 08/25/16 9:58:00 EVENT DESIGNER Start Date: 08/25/16 Stop Date: 08/25/16 Status: Completed ondansetron 4 mg, Route: IVP, ONCE, Dosing Weight 153.182, kg, Priority: STAT, Start date: 0 08/25/16 9:58:00 EVENT DESIGNER, Stop date: 08/25/16 9:58:00 EVENT DESIGNER Start Date: 08/25/16 Stop Date: 08/25/16 Status: Completed Pepcid 20 mg oral tablet 20 mg = 1 tab, PO, BID, # 28 tab, 0 Refill(s) Start Date: 08/25/16 Stop Date: 09/08/16 Status: Ordered Reglan 10 mg, Route: IVP, Drug form: INJ, ONCE, Dosing Weight 153.182, kg, Priority: ST AT, Start date: 08/25/16 13:38:00 EVENT DESIGNER, Stop date: 08/25/16 13:38:00 EVENT DESIGNER Start Date: 08/25/16 Stop Date: 08/25/16 Status: Completed Saline Flush 0.9% 10 mL, Route: IVP, Drug Form: INJ, Dosing Weight 153.182, kg, PRN, PRN Line Flus h, Start date: 08/25/16 9:58:00 EVENT DESIGNER, Duration: 30 day, Stop date: 09/24/16 9:57: 00 EVENT DESIGNER Notes: Same as: BD Posiflush Sterile Start Date: 08/25/16 Stop Date: 08/25/16 Status: Discontinued Sodium Chloride 0.9% (Bolus) IV 1,000 mL, Infuse Over: 1 hr, Route: IV, ONCE, Priority: STAT, Dosing Weight 153. 182 kg, Start date: 08/25/16 9:58:00 EVENT DESIGNER, Duration: 1 doses or times, Stop date: 08/25/16 9:58:00 EVENT DESIGNER Start Date: 08/25/16 Stop Date: 08/25/16 Status: Completed tramadol 50 mg oral tablet 50 mg = 1 tab, PO, Q6H, X 5 day, # 20 tab, 0 Refill(s) Start Date: 08/25/16 Stop Date: 08/30/16 Status: Ordered Zofran ODT 4 mg oral tablet, disintegrating 4 mg = 1 tab, PO, Q8H, PRN Nausea and Vomiting, Dissolve tab under tongue, X 5 d ay, # 15 tab, 0 Refill(s) Start Date: 08/25/16 Stop Date: 08/30/16 Status: Ordered Results ELECTROLYTES Most recent to 1 oldest [Reference Range]: Sodium Lvl [135-145 137 mEq/L mEq/L] (08/25/16 10:20 AM) Potassium Lvl 4.0 mEq/L [3.5-5.1 mEq/L] (08/25/16 10:20 AM) Chloride Lvl [95-109 101 mEq/L mEq/L] (08/25/16 10:20 AM) CO2 [24-32 mEq/L] 26 mEq/L (08/25/16 10:20 AM) AGAP [10.0-20.0 14.0 mEq/L mEq/L] (08/25/16 10:20 AM) CHEM PANEL Most recent to 1 oldest [Reference Range]: Creatinine Lvl 0.95 mg/dL [0.50-1.40 mg/dL] (08/25/16 10:20 AM) eGFR 98 mL/min/1.73m2 1 *NA* (08/25/16 10:20 AM) BUN [7-22 mg/dL] 14 mg/dL (08/25/16 10:20 AM) B/C Ratio [6-25] 15 (08/25/16 10:20 AM) Glucose Lvl [70-99 125 mg/dL mg/dL] *HI* (08/25/16 10:20 AM) Total Protein 8.2 g/dL [6.4-8.4 g/dL] (08/25/16 10:20 AM) Albumin Lvl [3.5-5.0 3.2 g/dL g/dL] *LOW* (08/25/16 10:20 AM) Globulin [2.7-4.2 5.0 g/dL g/dL] *HI* (08/25/16 10:20 AM) A/G Ratio [0.7-1.6] 0.6 *LOW* (08/25/16 10:20 AM) Calcium Lvl 9.0 mg/dL [8.5-10.5 mg/dL] (08/25/16 10:20 AM) ALT [0-65 unit/L] 60 unit/L (08/25/16 10:20 AM) AST [0-37 unit/L] 27 unit/L (08/25/16 10:20 AM) Alk Phos [39-136 109 unit/L unit/L] (08/25/16 10:20 AM) Bili Total [0.2-1.3 0.4 mg/dL mg/dL] (08/25/16 10:20 AM) Amylase Lvl [25-115 72 unit/L unit/L] (08/25/16 10:20 AM) Lipase Lvl [73-393 88 unit/L unit/L] (08/25/16 10:20 AM) 1Result Comment: The eGFR is calculated using [...] be mul tiplied by the estimated BMI. URINE AND STOOL Most recent to 1 oldest [Reference Range]: UA Turbidity [Clear] Clear (08/25/16 12:15 PM) UA Color Ltyellow *NA* (08/25/16 12:15 PM) UA pH [5.0-8.0] 7.0 (08/25/16 12:15 PM) UA Spec Grav 1.028 [<=1.030] (08/25/16 12:15 PM) UA Glucose [Negative Negative mg/dL mg/dL] *NA* (08/25/16 12:15 PM) UA Blood [Negative] Negative (08/25/16 12:15 PM) UA Ketones [Negative Negative mg/dL mg/dL] *NA* (08/25/16 12:15 PM) UA Protein [Negative Negative mg/dL mg/dL] (08/25/16 12:15 PM) UA Urobilinogen <=1.0 mg/dL [0.1-1.0 mg/dL] *NA* (08/25/16 12:15 PM) UA Bili [Negative] Negative *NA* (08/25/16 12:15 PM) UA Leuk Est Negative [Negative] (08/25/16 12:15 PM) UA Nitrite Negative [Negative] (08/25/16 12:15 PM) UA WBC [0-5 /HPF] 1 /HPF (08/25/16 12:15 PM) UA RBC [0-2 /HPF] 1 /HPF (08/25/16 12:15 PM) UA Sq Epi [Few /LPF] Occasional /LPF *NA* (08/25/16 12:15 PM) UA Mucus [None Seen Few /LPF /LPF] *NA* (08/25/16 12:15 PM) HEMATOLOGY Most recent to 1 oldest [Reference Range]: WBC [3.7-10.4 K/CMM] 11.5 K/CMM *HI* (08/25/16 10:20 AM) RBC [4.70-6.10 4.74 M/CMM M/CMM] (08/25/16 10:20 AM) Hgb [14.0-18.0 g/dL] 14.2 g/dL (08/25/16 10:20 AM) Hct [42.0-54.0 %] 43.2 % (08/25/16 10:20 AM) MCV [80.0-94.0 fL] 91.1 fL (08/25/16 10:20 AM) MCH [27.0-31.0 pg] 29.9 pg (08/25/16 10:20 AM) MCHC [32.0-36.0 32.9 g/dL g/dL] (08/25/16 10:20 AM) RDW [11.5-14.5 %] 15.0 % *HI* (08/25/16 10:20 AM) Platelet [133-450 361 K/CMM K/CMM] (08/25/16 10:20 AM) MPV [7.4-10.4 fL] 9.0 fL (08/25/16 10:20 AM) Segs [45.0-75.0 %] 73.6 % (08/25/16 10:20 AM) Lymphocytes 17.8 % [20.0-40.0 %] *LOW* (08/25/16 10:20 AM) Monocytes [2.0-12.0 6.8 % %] (08/25/16 10:20 AM) Eosinophils [0.0-4.0 1.2 % %] (08/25/16 10:20 AM) Basophils [0.0-1.0 0.6 % %] (08/25/16 10:20 AM) Segs-Bands # 8.4 K/CMM [1.5-8.1 K/CMM] *HI* (08/25/16 10:20 AM) Lymphocytes # 2.0 K/CMM [1.0-5.5 K/CMM] (08/25/16 10:20 AM) Monocytes # [0.0-0.8 0.8 K/CMM K/CMM] (08/25/16 10:20 AM) Eosinophils # 0.1 K/CMM [0.0-0.5 K/CMM] (08/25/16 10:20 AM) Basophils # [0.0-0.2 0.1 K/CMM K/CMM] (08/25/16 10:20 AM) Immunizations Given and Recorded Vaccine Date Status [...]
--- OUTSIDE RECORDS SUMMARY | 2020-01-05 08:13 | XMS REPORT | Continuity of Care Document ---
Author Author [facility] t Organization [facility] Address [address] [place] [address] Phone Unavailable Care Team Providers Care Radio Survey Worker Name Role Phone NONSTAFF PCP Unavailable Erica Dias Attphys Luma Chawla Attphys LUCA NEWELL Attphys Unavailable Jovita CHRISTIAN Attphys Unavailable Rosas Simmons Attphys Sony Olivo Attphys Caro Srivastava Attphys Luigi Hood Attphys LUCA NEWELL Admphys Unavailable Payers Payer Name Policy Type Policy Number Effective Date Expiration Date S john [employer] [facility] [id number] 2018 00:00:00 [facility] Problems Condition Name Condition Details Condition Category Status Onset Date Resolution Date Last Treatment Date Treating Clinician Comments Source R07.9 2 DAY PROTOCOL AI TO STEPHANIE R07.9 2 DAY PROTOCOL AI TO STEPHANIE Active 05/11/2019 [facility] Ac tive 2019-05-11 00:00:00 2019-05-16 10:28:00 M arin Hendrix Cellulitis Cellulitis Disease Active 2018-10-10 00:00:00 [facility] Cellulitis of right leg Cellulitis of right leg Disease Active 2018-10-10 00:00:00 [facility] CHEST PAIN CHES T PAIN Active 10/07/2018 [facility] Diagnosis Active 2018-10-07 00:00:00 2018-10-07 23:53:00 [facility] VOMITING VOMI TING Active 08/25/2016 [facility] Diagnosis Active 2016-08-25 00:00:00 2016-08-25 10:18:00 [facility] DX: R06.02=SHORTNESS OF BREATH DX: R06.02=SHORTNESS OF BREATH Active 05/01/2016 [facility] Active 2016-05-01 00:00: 00 2016-05-07 10:55:00 [facility] Morbid obesity (disorder) Morb id obesity (disorder) Active Problem 09/01/2019 [facility] Problem Active 2019-09-01 01:15:08 [facility] Chest pain, unspecified Ches t pain, unspecified 08/01/2017 08/04/2017 [facility] Problem 2017-08-01 06:00:00 2017 02:04:44 2017-08-04 02:04:44 [facility] Discharge Diagnosis: Moderate nausea and vomiting Discharge Diagnosis: Moderate nausea and vomiting 08/25/2016 08/28/2016 [facility] Problem 2016-08-25 06:00:00 2016-08-28 04:36:26 2016-08 04:36:26 [facility] Discharge Diagnosis: Acute gastritis Discharge Diagnosis: Acute gastritis 08/25/2016 08/28/2016 [facility] Problem 2016-08-25 06:00:00 2016-08-28 04:36:26 2016-08-28 04:36:26 [facility] Allergies, Adverse Reactions, Alerts Allergy Name Allergy Type Status Severity Reaction(s) Onset Date Inacti ve Date Treating Clinician Comments Source No Known Medication Allergies No Known Medication Allergies Active [facility] Family History Family Member Diagnosis Comments Start Date Stop Date Source Natural father Diabetes [facility] Natural father Early [facility] Paternal grandmother Diabetes [facility] Social History Social Habit Start Date Stop Date Quantity Comments Source History SDOH Alcohol Std Drinks [facility] History SDOH Alcohol Binge [facility] Sex Assigned At [facility] History SDOH Alcohol Frequency 2018-10-09 00:00:00 2018-10-09 00:00:0 0 1 [facility] Smoking Status Start Date Stop Date Source Social History [facility] Medications Ordered Medication Name Filled Medication Name Start Date Stop Da te Current Medication? Ordering Clinician Indication Dosage Frequency Signature (SIG) Comments Components Source albuterol 90 mcg/inh inhalation aerosol 2019-08-30 15:13:00 Yes 1 puff, INHALER, Q4H, PRN for wheezing/cough, # 8.5 gm, 0 Refill(s), Pharmacy: [id number] Fluticasone propionate 0.05 MG/ACTUAT Metered Dose Nasal Spr ay [Flonase] 2019-08-29 17:26:00 Yes 1 spray, NASAL, BID, # 16 gm, 0 Refill(s), Pharmacy: [facility] [employer] [facility] #[id number] [facility] Azithromycin 5 Day Dose Pack 250 mg oral tablet 2019-08-29 17:25 :00 Yes See Instructions, Take 2 tab lets by mouth the first day then 1 tablet by mouth days 2-5., X 5 day, # 6 tab, 0 Refill(s), Pharmacy: [facility] [employer] [facility] #[id number] [facility] benzonatate 200 MG Oral Capsule [Tessalon] 2019-08-29 17:25:00 Yes 200 mg = 1 cap, PO, TID, X 7 day, # 21 cap, 0 Refill(s), Pharmacy: [facility] #[id number] [facility] Brompheniramine Maleate 0.4 MG/ML / Dext romethorphan Hydrobromide 2 MG/ML / Pseudoephedrine Hydrochloride 6 MG/ML Oral Solution 2019-08-29 17:2 5:00 Yes 5 mL, PO, Q4H, P RN cough, X 8 day, # 240 mL, 0 Refill(s), Pharmacy: [facility] [employer] [facility] #[id number] [facility] cefdinir 300 MG Oral Capsule 2019-07-06 21:52:00 Yes 300 mg = 1 cap, PO, BID, X 10 day, # 20 cap, 0 Refill(s), Pharmacy: [facility] #[id number] [facility] aspirin 81 mg tablet, enteric coated 2017-08-01 23:07:00 Ye s 81 mg = 1 tab, PO, Daily, # 30 tab, 1 Refill(s) [facility] Aspirin 2017-08-01 20:02:00 No Notes: Take with food. [facility] [address] Saline Flush 0.9% 2017-08-01 19:13:00 No Notes: (Same as: BD Posiflush) Juan Luis Hendrix tramadol hydrochloride 50 MG Oral Tablet 2016-08-25 19:51:00 Yes 50 mg = 1 tab, PO, Q6H, X 5 day, # 20 tab, 0 Refill(s) [facility] [address] Famotidine 20 MG Oral Tablet [Pepcid] 2016-08-25 19:51:00 Y es 20 mg = 1 tab, PO, BID, # 28 tab, 0 Refill(s) [facility] [address] Ondansetron 4 MG Disintegrating Tablet [Zofran] 2016-08-25 19:51 :00 Yes 4 mg = 1 tab, PO, Q8H, PRN N ausea and Vomiting, Dissolve tab under tongue, X 5 day, # 15 tab, 0 Refill(s) [facility] Oliverio dennis Reglan 2016-08-25 19:38:00 No 10 mg, Route: IVP, Drug form: INJ, ONCE, Dosing Weight 153.182, kg, Priority: STAT, Start date: 08/25/16 13:38:00 [employer], Stop date: 08/25/16 13:38:00 [employer] [facility] Sal[facility] Flush 0.9% 2016-08-25 15:58:00 No Notes: Same as: BD Posiflush Sterile [facility] [address] Sodium Chloride 0.154 MEQ/ML Injectable Solution 2016-08-25 15:5 8:00 No 1,000 mL, Infuse Over: 1 hr, Route: IV, ONCE, Priority: STAT, Dosing Weight 153.182 kg, Start date: 08/25/16 9:58:00 [employer], Duration: 1 doses or times, Stop date: 08/25/16 9:58:00 [employer] [facility] Reuben hernandez Famotidine 2016-08-25 15:58:00 No 20 mg, Route: IVP, ONCE, Dosing Weight 153.182, kg, Priority: STAT, Start date: 08/25/16 9:58:00 [employer], Stop date: 08/25/16 9:58:00 [employer] [facility] [address] Ondansetron 2016-08-25 15:58:00 No 4 mg, Route: IVP, ONCE, Dosing Weight 153.182, kg, Priority: STAT, Start date: 08/25/16 9:58:00 [employer], Stop date: 08/25/16 9:58:00 [employer] [facility] Morphine 2016-08-25 15:58:00 No 4 mg, Route: IVP, ONCE, Dosing Weight 153.182, kg, Priority: STAT, Start date: 08/25/16 9:58:00 [employer], Stop date: 08/25/16 9:58:00 [employer] [facility] Vital Signs Vital Name Observation Time Observation Value Comments Source Systolic (mm Hg) 2019-08-29 17:03:00 Jem rial [address] Diastolic (mm Hg) 2019-08-29 17:03:00 [facility] Heart Rate 2019-08-29 17:03:00 [facility] Temperature Oral (F) 2019-08-29 17:03:00 98.5 F [facility] Height 2019-08-29 17:03:00 170.18 cm [facility] Weight 2019-08-29 17:03:00 [facility] BMI Calculated 2019-08-29 17:03:00 [facility] Systolic (mm Hg) 2019-07-06 20:53:00 [facility] [place] Diastolic (mm Hg) 2019-07-06 20:53:00 [facility] Heart Rate 2019-07-06 20:53:00 [facility] Temperature Oral (F) 2019-07-06 20:53:00 98.7 F [facility] Height 2019-07-06 20:53:00 170.18 cm [facility] Weight 2019-07-06 20:53:00 [facility] BMI Calculated 2019-07-06 20:53:00 [facility] Height 2019-05-16 16:35:00 167.64 cm [facility] Weight 2019-05-16 16:35:00 [facility] BMI Calculated 2019-05-16 16:35:00 [facility] Temperature Oral (F) 2018-10-08 02:16:00 100.0 F [facility] Heart Rate 2018-10-08 02:16:00 [facility] Respitory Rate 2018-10-08 02:16:00 [facility] Systolic (mm Hg) 2018-10-08 02:16:00 [facility] [place] Diastolic (mm Hg) 2018-10-08 02:16:00 [facility] Height 2018-10-08 00:44:00 170.18 cm [facility] Weight 2018-10-08 00:44:00 [facility] BMI Calculated 2018-10-08 00:44:00 [facility] Heart Rate 2018-10-08 00:44:00 [facility] Respitory Rate 2018-10-08 00:44:00 [facility] Temperature Oral (F) 2018-10-08 00:44:00 99.4 F [facility] Systolic (mm Hg) 2018-10-08 00:44:00 [facility] [place] Diastolic (mm Hg) 2018-10-08 00:44:00 [facility] Respitory Rate 2017-08-01 23:45:00 [facility] Systolic (mm Hg) 2017-08-01 23:45:00 [facility] [place] Diastolic (mm Hg) 2017-08-01 23:45:00 [facility] Temperature Oral (F) 2017-08-01 23:45:00 98 F [facility] Heart Rate 2017-08-01 23:45:00 [facility] Heart Rate 2017-08-01 21:51:00 [facility] Respitory Rate 2017-08-01 21:51:00 [facility] Systolic (mm Hg) 2017-08-01 21:51:00 [facility] Diastolic (mm Hg) 2017-08-01 21:51:00 [facility] Respitory Rate 2017-08-01 20:00:00 [facility] Systolic (mm Hg) 2017-08-01 20:00:00 [facility] Diastolic (mm Hg) 2017-08-01 20:00:00 [facility] Heart Rate 2017-08-01 20:00:00 [facility] Weight 2017-08-01 18:23:00 [facility] BMI Calculated 2017-08-01 18:23:00 [facility] Height 2017-08-01 18:23:00 167.64 cm [facility] Temperature Oral (F) 2017-08-01 18:23:00 98.1 F [facility] Heart Rate 2016-08-25 20:00:00 [facility] Respitory Rate 2016-08-25 20:00:00 [facility] Systolic (mm Hg) 2016-08-25 20:00:00 [facility] Diastolic (mm Hg) 2016-08-25 20:00:00 [facility] Temperature Oral (F) 2016-08-25 20:00:00 98.1 F [facility] Heart Rate 2016-08-25 15:48:00 [facility] Systolic (mm Hg) 2016-08-25 15:48:00 [facility] Diastolic (mm Hg) 2016-08-25 15:48:00 [facility] Respitory Rate 2016-08-25 15:48:00 [facility] Height 2016-08-25 15:48:00 170.18 cm [facility] BMI Calculated 2016-08-25 15:48:00 [facility] Weight 2016-08-25 15:48:00 [facility] Temperature Oral (F) 2016-08-25 15:48:00 98.7 F [facility] BMI Calculated 2016-05-07 16:48:00 [facility] Height 2016-05-07 16:48:00 170.18 cm [facility] Weight 2016-05-07 16:48:00 [facility] Procedures This patient has no known procedures. Encounters Start Date/Time End Date/Time Encounter Type Admission Type Att[facility] Care Department Encounter ID Source 2019-08-29 11:00:00 2019-08-29 23:59:59 Outpatient Liliana Dias [facility] [id number] 2019-07-06 15:30:00 2019-07-06 23:59:59 Outpatient Liliana Dias [facility] [id number] 2019-05-16 10:19:00 2019-05-16 23:59:00 Outpatient Luma Chawla [facility] [id number] 2019-05-16 10:19:00 2019-05-16 10:19:00 Outpatient [id number] 2018-10-09 10:24:00 2018-10-09 14:53:00 Departed Emergency Room 1 DINO CHRISTIAN [facility] [id number] [facility] 2018-10-07 18:42:00 2018-10-07 22:36:00 Outpatient Maurice Mejia [facility] [id number] 2017-08-01 12:16:00 2017-08-01 18:04:00 Outpatient Geovani Lalito quiñonesmyles Cardoza [facility] [id number] 2016-08-25 09:44:00 2016-08-25 14:10:00 Outpatient Juana Love [facility] [id number] 2016-05-07 10:47:00 2016-05-07 23:59:00 Outpatient Channing Hood [facility] [id number] Results Test Description Test Time Test Comments Results Result Comments Source BASIC METABOLIC PANEL 2018-10-11 12:08:00 Test Item SODIUM (BEAKER) (test code = 381) 139 meq/L 136-145 POTASSIUM (BEAKER) (test code = 379) 4.1 meq/L 3.5-5.1 CHLORIDE (BEAKER) (test code = 382) 105 meq/L 98-107 CO2 (BEAKER) (test code = 355) 25 meq/L 22-29 BLOOD UREA NITROGEN (BEAKER) (test code = 354) 15 mg/dL 7-21 CREATININE (BEAKER) (test code = 358) 0.90 mg/dL 0.57-1.25 GLUCOSE RANDOM (BEAKER) (test code = 652) 94 mg/dL 70-105 CALCIUM (BEAKER) (test code = 697) 9.5 mg/dL 8.4-10.2 EGFR (BEAKER) (test code = 1092) mL/min/1.73 sq m INSUFFICIENT CLINICAL DATA TO CALCULATE ESTIMATED GFR. CBC W/PLT COUNT & AUTO [id number] 11:33:00* Test Item Value Reference Range Interpretation Comments WHITE BLOOD CELL COUNT (BEAKER) (test code = 775) 9.8 K/ L 3.5- 10.5 RED BLOOD CELL COUNT (BEAKER) (test code = 761) 4.72 M/ L 4.63-6 .08 HEMOGLOBIN (BEAKER) (test code = 410) 14.1 GM/DL 13.7-17.5 HEMATOCRIT (BEAKER) (test code = 411) 46.2 % 40.1-51.0 MEAN CORPUSCULAR VOLUME (BEAKER) (test code = 753) 97.9 fL 79. 0-92.2 H MEAN CORPUSCULAR HEMOGLOBIN (BEAKER) (test code = 751) 29.9 pg 25.7-32.2 MEAN CORPUSCULAR HEMOGLOBIN CONC (BEAKER) (test code = 752) 30.5 GM/DL 32.3-36.5 L RED CELL DISTRIBUTION WIDTH (BEAKER) (test code = 412) 14.6 % 11.6-14.4 H PLATELET COUNT (BEAKER) (test code = 756) 364 K/CU MM 150-450 MEAN PLATELET VOLUME (BEAKER) (test code = 754) 10.6 fL 9.4-12 .4 NUCLEATED RED BLOOD CELLS (BEAKER) (test code = 413) 0 /100 WBC 0 -0 NEUTROPHILS RELATIVE PERCENT (BEAKER) (test code = 429) 63 % LYMPHOCYTES RELATIVE PERCENT (BEAKER) (test code = 430) 24 % MONOCYTES RELATIVE PERCENT (BEAKER) (test code = 431) 9 % EOSINOPHILS RELATIVE PERCENT (BEAKER) (test code = 432) 2 % BASOPHILS RELATIVE PERCENT (BEAKER) (test code = 437) 0 % NEUTROPHILS ABSOLUTE COUNT (BEAKER) (test code = 670) 6.18 K/ L 1.78-5.38 H LYMPHOCYTES ABSOLUTE COUNT (BEAKER) (test code = 414) 2.33 K/ L 1.32-3.57 MONOCYTES ABSOLUTE COUNT (BEAKER) (test code = 415) 0.92 K/ L 0. 30-0.82 H EOSINOPHILS ABSOLUTE COUNT (BEAKER) (test code = 416) 0.23 K/ L 0.04-0.54 BASOPHILS ABSOLUTE COUNT (BEAKER) (test code = 417) 0.04 K/ L 0. 01-0.08 IMMATURE GRANULOCYTES-RELATIVE PERCENT (BEAKER) (test code = 2801) 1 % 0-1 COMPREHENSIVE METABOLIC [id number] 07:11:00* Test Item Value Reference Range Interpretation Comments TOTAL PROTEIN (BEAKER) (test code = 770) 7.4 gm/dL 6.0-8.3 ALBUMIN (BEAKER) (test code = 1145) 3.4 g/dL 3.5-5.0 L ALKALINE PHOSPHATASE (BEAKER) (test code = 346) 111 U/L 40-150 BILIRUBIN TOTAL (BEAKER) (test code = 377) 0.7 mg/dL 0.2-1.2 SODIUM (BEAKER) (test code = 381) 138 meq/L 136-145 POTASSIUM (BEAKER) (test code = 379) 3.7 meq/L 3.5-5.1 CHLORIDE (BEAKER) (test code = 382) 105 meq/L 98-107 CO2 (BEAKER) (test code = 355) 24 meq/L 22-29 BLOOD UREA NITROGEN (BEAKER) (test code = 354) 16 mg/dL 7-21 CREATININE (BEAKER) (test code = 358) 0.90 mg/dL 0.57-1.25 GLUCOSE RANDOM (BEAKER) (test code = 652) 87 mg/dL 70-105 CALCIUM (BEAKER) (test code = 697) 9.2 mg/dL 8.4-10.2 AST (SGOT) (BEAKER) (test code = 353) 20 U/L 5-34 ALT (SGPT) (BEAKER) (test code = 347) 28 U/L 6-55 EGFR (BEAKER) (test code = 1092) mL/min/1.73 sq m INSUFFICIENT CLINICAL DATA TO CALCULATE ESTIMATED GFR. CBC W/PLT COUNT & AUTO [id number] 06:47:00* Test Item Value Reference Range Interpretation Comments WHITE BLOOD CELL COUNT (BEAKER) (test code = 775) 11.7 K/ L 3.5- 10.5 H RED BLOOD CELL COUNT (BEAKER) (test code = 761) 4.39 M/ L 4.63-6 .08 L HEMOGLOBIN (BEAKER) (test code = 410) 13.4 GM/DL 13.7-17.5 L HEMATOCRIT (BEAKER) (test code = 411) 42.6 % 40.1-51.0 MEAN CORPUSCULAR VOLUME (BEAKER) (test code = 753) 97.0 fL 79. 0-92.2 H MEAN CORPUSCULAR HEMOGLOBIN (BEAKER) (test code = 751) 30.5 pg 25.7-32.2 MEAN CORPUSCULAR HEMOGLOBIN CONC (BEAKER) (test code = 752) 31.5 GM/DL 32.3-36.5 L RED CELL DISTRIBUTION WIDTH (BEAKER) (test code = 412) 14.8 % 11.6-14.4 H PLATELET COUNT (BEAKER) (test code = 756) 291 K/CU MM 150-450 MEAN PLATELET VOLUME (BEAKER) (test code = 754) 10.8 fL 9.4-12 .4 NUCLEATED RED BLOOD CELLS (BEAKER) (test code = 413) 0 /100 WBC 0 -0 NEUTROPHILS RELATIVE PERCENT (BEAKER) (test code = 429) 67 % LYMPHOCYTES RELATIVE PERCENT (BEAKER) (test code = 430) 21 % MONOCYTES RELATIVE PERCENT (BEAKER) (test code = 431) 10 % EOSINOPHILS RELATIVE PERCENT (BEAKER) (test code = 432) 2 % BASOPHILS RELATIVE PERCENT (BEAKER) (test code = 437) 0 % NEUTROPHILS ABSOLUTE COUNT (BEAKER) (test code = 670) 7.90 K/ L 1.78-5.38 H LYMPHOCYTES ABSOLUTE COUNT (BEAKER) (test code = 414) 2.43 K/ L 1.32-3.57 MONOCYTES ABSOLUTE COUNT (BEAKER) (test code = 415) 1.12 K/ L 0. 30-0.82 H EOSINOPHILS ABSOLUTE COUNT (BEAKER) (test code = 416) 0.17 K/ L 0.04-0.54 BASOPHILS ABSOLUTE COUNT (BEAKER) (test code = 417) 0.02 K/ L 0. 01-0.08 IMMATURE GRANULOCYTES-RELATIVE PERCENT (BEAKER) (test code = 2801) 1 % 0-[address] [facility] WBK-[id number] 12:45:00 [place] [address] Patient Name: DIONNE CRUZ MR #: [id number] : 1975 Age/Sex: 42/M Req #: [id number] Adm Physician: Ordered by: DINO CHRISTIAN MD Report #: [id number] Location: [facility] Room/Bed: Procedure: 0310 -[id number] HOPD/US EXREMEITY VEINS UNI-HOPD Exam Date: 10/09/18 Exam Time: 1140 REPORT STATU S: Signed Limited right lower extremity venous ultrasound. COMPARISON: N one. INDICATION: Right leg pain. TECHNIQUE/FINDINGS: Markedly limi ignacia evaluation with poor visualization of the right superficial and deep femor al veins and common femoral vein. Right GSV is patent with Doppler waveform. W aveform with augmentation is seen within the right common femoral vein, poplit eal vein, and anterior and posterior tibial veins. There is an irregular a ppearing likely lymph node within the right inguinal region measuring up to 1. 4 cm short axis. There is diffuse soft tissue edema. IMPRESSION Nondiagno stic study for evaluation of right lower extremity DVT due to body habitus. If there is clinical suspicion for thrombus, CT venogram may be obtained for fur ther evaluation. Irregular appearing likely lymph node measuring up to 1.4 cm short axis in the right inguinal region. This can be further assessed on CT venogram. Diffuse soft tissue edema, suggestive of cellulitis. Signed by: Dr. Agnes Orozco MD on 10/09/2018 12:51 PM Dictated By: AGNES OROZCO MD 1251 Transcribed By: ALESSIO GRAY on 10/09/18 1251 COPY TO: DINO CHRISTIAN MD CARDIAC [id number] 01:01:00<0.02[facility] FlkhlhrVZNHJFXMBNVA7329-51-43 01:01:00 16.2[facility] UjleqewTGKHUPYBCCNR1681-85-34 01:01:0092[facility] MBCMPQTIFCWC7692-11-12 01:01:0025[facility] XbcpudiKORSSOKTTZWL2532-04-10 01:01:00 103[facility] DdderfiKABPVQNEGZVU1510-03-30 01:01:004.2[facility] WQAPNOEBHFDE2028-93-89 01:01:48729Tstexbaa RypoxzyPNSOZUDESOBI9257-06-04 01:01:009.4[facility] AxgkyypNHPILFIRYXPJ6172-63-71 01:01:000.99[facility] OSHTUKTPONIC2586-20-69 01:01:0016[facility] RinxhyxOBYMSTMIYNTB2088-09-91 01:01:00 90[facility] FshcxsvMLUUXOBHVL0390-31-10 01:01:0032.3[facility] 2018-10-08 01:01:27577Dkzebrdy EeouhhwKFMOIKBVGO1502-75-74 01:01:008.9[facility] TqznxhpBFCVBYCTGE4965-74-93 01:01:0015.3[facility] CzhpfatKELJVBYPBV0381-80-82 01:01:005.21[facility] LuedazmVXOGVQMOZW3717-43-07 01:01:0015.9[facility] NKQISLVXLG6715-60-17 01:01:0049.0[facility] CvwyzlfMOFMIZVLXN4236-81-36 01:01:00 94.1[facility] MtnaneuJAHXARPKLJ3607-73-56 01:01:00* Test Item Value Reference Range Interpretation Comments MCH (test code = MCH) 30.4 pg 27.0-31.0 [facility] ZdsmiznFMWXYOWUMM2550-98-68 01:01:0020.8[facility] 2018-10-08 01:01:000.1[facility] CqrskpdSYWABVOWTF7309-01-78 01:01:0017.6[facility] VtubjydICQKLRALZF7776-92-83 01:01:001.7[facility] ZwzuyniQYHXLZTPHA2833-30-34 01:01:001.2[facility] OapqfgiIYETPXBZHB3650-32-03 01:01:000.1[facility] GJJHKBUPTU6723-40-80 01:01:000.5[facility] XuoghdhQPDYASOZGN6596-58-77 01:01:000.4 [facility] AfeuqcdZSBXIBHJUD7944-11-71 01:01:008.4[facility] 2018-10-08 01:01:006.0[facility] QvaunwxHFUQZKKDLA2146-42-29 01:01:0084.7[facility] HermannCARDIAC FKLPNGU6981-58-08 21:53:000.6[facility]ann[facility]AC ENZYMES 2017-08-01 21:53:25954Zpzacgwj HermannCARDIAC TBYPVIE2895-59-66 21:53:00<0.02 [facility]ann[facility] ZJLRYJJ4555-21-83 21:53:000.5[facility]ann[facility]AC WRTSAEM9904-05-72 20:48:000.6[facility]ann[facility] SBPLWLL2432-81-42 20:48:00 0.7[facility]annCARDIAC ICPNGWJ1764-92-07 20:48:00<0.02[facility] CARDIAC ZUNVYJY4033-06-35 20:48:09545Vrraivpb HermannCHEM DYRZP8390-96-44 20:48:0030[facility] HermannCHEM MNXTG2314-90-19 20:48:65167Klpgirja HermannCHEM UDLVM1615-32-45 20:48:003.4[facility] HermannCHEM KIWPC5472-22-63 20:48:0055 [facility]annCHEM LHWKG9754-82-34 20:48:000.4[facility] HermannCHEM PANEL 2017-08-01 20:48:0018[facility] HermannCHEM ABRFP5135-42-55 20:48:004.9[facility] HermannCHEM WVZUI2927-93-50 20:48:000.7[facility] HermannCHEM ZSKSN2910-19-17 20:48:0012.7[facility] HermannCHEM MGYKS0966-85-48 20:48:0094[facility] HermannCHEM EQEFV2846-71-68 20:48:0015[facility] HermannCHEM MNBLV2155-53-62 20:48:92470 [facility] HermannCHEM BWBTI2664-82-53 20:48:000.84[facility] HermannCHEM PANEL 2017-08-01 20:48:38099Fmoscgpn HermannCHEM EAACP4594-33-54 20:48:004.7[facility] HermannCHEM WXQNW8619-26-24 20:48:17822Gmjruter HermannCHEM LMWAO9986-27-17 20:48:0021[facility]annCHEM SNIWW5264-05-97 20:48:008.8[facility]annCHEM IIVDB1466-92-11 20:48:008.3[facility] DgmpkjdTFWCGNAFXL5645-96-22 20:48:000.7 [facility] AbwoijnXLUFQJWSIA8013-41-27 20:48:009.7[facility] HermannHEMATOLOGY 2017-08-01 20:48:000.4[facility] BxgrvbbYHVPRBMGCJ3140-44-39 20:48:000.6[facility] OiulwulZDXVKNVNFT2769-63-92 20:48:001.8[facility] IbsadfiFJVQKNHLPR2811-11-51 20:48:000.1[facility] VqwezmrSZKFREMUWB6045-13-60 20:48:0014.5[facility] WCXKWTMECK0442-42-76 20:48:0078.5[facility] EealqwpBDLHUMCTFE2261-27-43 20:48:00 6.0[facility] YdpnveqIDEHCBIPQW2800-26-96 20:48:008.9[facility] HermannHEMATOLOGY 2017-08-01 20:48:76881Gpxufwey YnqbifeNKSYNUYGUO3025-80-63 20:48:0032.3[facility] VflfffhZBITDPCFKK4656-87-92 20:48:0015.8[facility] JhcitumZAHQRZLLJQ2112-07-25 20:48:0092.6[facility] NzxmumgLGFLRUDQAX9866-68-51 20:48:0048.2[facility] LVNHOYMMKH0700-75-15 20:48:0015.6[facility] PwzrcbuVBAOEEISHG4093-30-61 20:48:00* Test Item Value Reference Range Interpretation Comments MCH (test code = MCH) 29.9 pg 27.0-31.0 [facility] CynnxqyKSNHEQZRYT7750-09-78 20:48:0012.4[facility] HermannHEMATOLOGY 2017-08-01 20:48:005.21[facility]annURINE AND XPSQH3646-96-29 18:15:00 Negative (08/25/16 12:15 PM)[facility] TBBNL4490-09-66 18:15:00 Negative (08/25/16 12:15 PM)[facility] RBKRN1889-70-17 18:15:00 Negative (08/25/16 12:15 PM)[facility] APPYZ0207-50-23 18:15:001 [facility] UZVWW9050-86-85 18:15:001[facility] AND AKGBP9661-81-30 18:15:007.0[facility] AND ASUQD5440-51-35 18:15:00 Clear (08/25/16 12:15 PM)[facility] ZXCRS3250-21-88 18:15:001.028 [facility] YFAYA1781-50-46 18:15:00Negative *NA*(08/25/16 12:15 PM)[facility]annCHEM HGJSD1935-82-44 16:20:0072[facility]annCHEM PANEL 2016-08-25 16:20:0088[facility] LzkukxbDMWDLOHXJJAS2688-70-41 16:20:0014.0[facility] BslmrnuBIGRLZPWFWDI7697-75-65 16:20:0015[facility] BcunwfdLGXAZWQKXEII1079-72-01 16:20:005.0[facility] RutxtmnCQADRBCJWMTW3172-32-11 16:20:000.6[facility] KSZASBCOEHJT7096-90-45 16:20:0098[facility] NcoclfpMAYPTWCWUGGQ3243-20-88 16:20:00 8.2[facility] FzgjiuuLEPCYMVPPGNG5604-50-36 16:20:003.2[facility] LWMNFSEDOFBD0743-37-18 16:20:0060[facility] AthrnppZTJWJDPQZNUD8832-20-27 16:20:00 9.0[facility] PhkrcxmPPJLWQNRUJGT5218-18-61 16:20:000.4[facility] QTYONDVNCNTH1383-04-88 16:20:0027[facility] MsalzekVSYTFODSLEPH2209-91-96 16:20:00 109[facility] XacgnlwPSTUQHOLVROU8377-72-61 16:20:000.95[facility] JQPXBJZQADRX6427-27-83 16:20:01469Ohqqnann YyavruqGJHHXESXBICB8402-64-64 16:20:004.0[facility] RridszqOEVBKSTAKXGJ1267-92-01 16:20:0014[facility] SGYVTGTSTPZA7935-09-06 16:20:67060Uofpxuyy FtmlxisYMFTXQJRGDRH3918-75-11 16:20:32898Wquftivh MukewfwICTGGQLMZQQH5820-68-09 16:20:0026[facility] VZSTFYFCUS1098-90-80 16:20:0032.9[facility] YldkybxHOSHFIRULP8185-02-03 16:20:00* Test Item Value Reference Range Interpretation Comments MCH (test code = MCH) 29.9 pg 27.0-31.0 [facility] MorsbfsJQHUGQEJPT4909-96-93 16:20:0014.2[facility] 2016-08-25 16:20:0091.1[facility] CbxafmeEEEZCXMKLM9623-25-59 16:20:0043.2[facility] IyaglvwPEKYQXQYAF1343-67-50 16:20:0015.0[facility] UhbujwmALZSKXWOKY3098-21-23 16:20:009.0[facility] DrzvjteCZBASXPRGO6085-64-06 16:20:29671Fgsepfqz [facility] UEFHPGVSJT8037-98-69 16:20:004.74[facility] VlgfpmjQFZLPDDBCU8161-79-93 16:20:00 11.5[facility] BegmrpwDFRVGDMORS8975-93-76 16:20:000.1[facility] 2016-08-25 16:20:008.4[facility] NonirtmHBNODCPDTN7375-47-09 16:20:000.6[facility] UeqjibeXZUJJGPGZG1733-07-37 16:20:000.1[facility] XdawrxkNEDCGSOIUI5982-51-95 16:20:000.8[facility] IgbkztjRWDNVXYPMA6577-83-74 16:20:002.0[facility] OBAHDAOKVJ4552-14-91 16:20:001.2[facility] VcjxyskSJKAGRUZYL0487-71-50 16:20:006.8 [facility] ViogvbdPYHENXTVPQ4033-11-29 16:20:0017.8[facility] 2016-08-25 16:20:0073.6[facility]
[2020-01-05 09:05] LABS: BASOPHILS % 0.3 % (0.0-1.0); EOSINOPHILS # (AUTO) 0.3 (0.0-0.4); EOSINOPHILS % 2.8 % (0.0-6.0); HEMOGLOBIN 14.7 g/dL (14.0-18.0); LYMPHOCYTES # (AUTO) 2.2 (1.0-3.2); MEAN CORPUSCULAR HEMOGLOBIN 29.8 pg (28-32); MEAN CORPUSCULAR HGB CONC 31.3 g/dL (31-35); MEAN CORPUSCULAR VOLUME 95.3 fL (81-99); MONOCYTES # (AUTO) 0.7 (0.2-0.8); MONOCYTES % 7.1 % (4.4-11.3); NEUTROPHILS % 65.4 % (38.7-80.0); PLATELET COUNT 368 x10e3/uL (140-360); RED BLOOD COUNT 4.93 x10e6/uL (4.3-5.7); RED CELL DISTRIBUTION WIDTH 14.1 % (11.7-14.4)
[2020-01-05 09:29] LABS: ALANINE AMINOTRANSFERASE 24 IU/L (0-55); ALBUMIN 3.4 g/dL (3.5-5.0); ALBUMIN/GLOBULIN RATIO 0.8 (0.8-2.0); ALKALINE PHOSPHATASE 100 IU/L (40-150); ANION GAP 12.1 mmol/L (8-16); BLOOD UREA NITROGEN 13 mg/dL (7-26); BUN/CREATININE RATIO 15 (6-25); CALCIUM 9.2 mg/dL (8.4-10.2); CARBON DIOXIDE 23 mmol/L (22-29); CHLORIDE 107 mmol/L (98-107); CREATINE KINASE 45 IU/L (30-200); CREATININE, SERUM 0.88 mg/dL (0.72-1.25); EST GLOMERULAR FILTRATION RATE > 60 ML/MIN (60-); GLUCOSE 103 mg/dL (74-118); POTASSIUM 4.1 mmol/L (3.5-5.1); SODIUM 138 mmol/L (136-145)
--- NOTE | 2020-01-05 11:31 | Diagnostic Imaging Report ---
TECHNIQUE: CT of the chest, abdomen, and pelvis WITH intravenous contrast and WITHOUT oral contrast. Dose modulation, iterative reconstruction, and/or weight-based adjustment of the mA/kV was utilized to reduce the radiation dose to as low as reasonably achievable. INDICATION: ^Y ^abd pain ^[id number] ^4. COMPARISON: None. FINDINGS: LINES/TUBES: None. PULMONARY ARTERIES: Proximal to the bifurcation of the main pulmonary artery, the main pulmonary artery is 2.6 cm in diameter. No filling defects within the pulmonary arteries to suggest pulmonary embolus. Suboptimal contrast bolus timing LUNGS AND AIRWAYS: There is either mucous plugging or a nodule in the right middle lobe which measures 0.4 cm on image 79. Mild atelectasis in the medial left lung base. PLEURA: The pleural spaces are clear. HEART AND MEDIASTINUM: The visualized thyroid gland is normal. No significant mediastinal, hilar, or axillary lymphadenopathy. The heart and pericardium are within normal limits. HEPATOBILIARY: No focal hepatic lesions. Prior cholecystectomy. No biliary ductal dilatation. SPLEEN: No splenomegaly. PANCREAS: No focal masses or ductal dilatation. ADRENALS: No adrenal nodules. KIDNEYS/URETERS: No hydronephrosis or masses. A left ureteropelvic junction stone measures 0.6 cm. A left lower pole nonobstructing stone is punctate. No hydronephrosis. PELVIC ORGANS/BLADDER: Unremarkable. PERITONEUM/RETROPERITONEUM: No free air or fluid. Small, fat filled umbilical hernia. LYMPH NODES: No lymphadenopathy. VESSELS: Unremarkable. GI TRACT: No distention or wall thickening. The appendix is normal. 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 Moderate degenerative disc changes at L5-S1. IMPRESSION: 1. Contrast bolus timing is suboptimal. However, no central pulmonary embolus is seen. 2. No acute intrathoracic abnormality. 3. A left ureteropelvic junction stone measures 0.6 cm. No hydronephrosis. 4. A left lower pole nonobstructing stone is punctate. 5. There is either a pulmonary nodule or mucous plugging in the right middle lobe which measures 0.4 cm. If the patient is at increased risk for lung cancer, an optional follow-up chest CT can be obtained in 12 months. Otherwise, no CT follow-up is necessary. Signed by: Krishna Fortune JR, MD on 01/05/2020 11:27 AM
[2020-01-05] MEDS ORDERED: FLUORESCEIN SOD(OPTH) 1 MG STRP OP ONE (12:30)
[2020-01-05 13:32] LABS: BILIRUBIN,URINE NEGATIVE (NEGATIVE); CLARITY,URINE CLEAR (CLEAR); COLOR,URINE YELLOW (YELLOW); KETONES,URINE NEGATIVE (NEGATIVE); LEUKOCYTE ESTERASE ,URINE NEGATIVE (NEGATIVE); NITRITE,URINE NEGATIVE (NEGATIVE); PROTEIN,URINE DIPSTICK NEGATIVE (NEGATIVE); URINE UROBILINOGEN 0.2 mg/dL (0.2 - 1)
[2020-01-05] MEDS ORDERED: ULTRAM50 MG PO (13:43)
[2020-01-05] MEDS ORDERED: FLOMAX0.4 MG PO (13:43)
[2020-01-05 13:56] LABS: BACTERIA,URINE FEW /HPF; EPITHELIAL CELLS,URINE FEW /LPF
[2020-01-05] MEDS ORDERED: SODIUM CHLORIDE 0.9% 50ML 50 ML ONE (14:14)
[2020-01-05] MEDS ORDERED: IOPAMIDOL 370 MG/ML 200 ML INFUS..BTL INJ ONE (14:14)
--- NOTE | 2020-01-05 14:46 | Emergency Department Note ---
History of Present Illnes History of Present Illness Chief Complaint: Chest Pain History of Present Illness This is a 44 year old male arrives to the ED with complaints of generalized malaise and weakness. Patient also complaining of chest pain or shortness of breath. Patient states symptoms have been present for several days and have not improved. Patient states he has found it difficult ambulating. Patient denies any fever but admits to occasional chills. Patient states he works from home and does not have any exposure to cold at 17. Patient's works at a hospital and she feels as though she might have brought the illness home. . Historian: Patient, Family Member Arrival Mode: Car Onset (how long ago): day(s) Onset quality: gradual Timing of current episode: intermittent Progression: unchanged Context: recent illness, new medications Past Medical/Family History Physician Review I have reviewed the patient's past medical and family history. Any updates have been documented here. Past Medical History Recent Fever: No Clinical Suspicion of Infectio: No New/Unexplained Change in Ment: No Past Medical History: None Other Medical History: morbidly obese psoriasis Past Surgical History: Cholecysctectomy Social History Smoking Cessation: Never Smoker Counseling Performed: No Alcohol Use: None Any Illegal Drug Use: No TB Exposure/Symptoms: No Physically hurt or threatened: No Family History Family history of heart diseas: No Other Last Tetanus: UNKNOWN Any Pre-Existing Lines (PICC,: No Is patient up to date on immun: Yes Last Flu: OOD Last Pneumovax: NA Review of Systems Review of Systems Constitutional: no symptoms EENTM: no symptoms Cardiovascular: no symptoms, chest pain Respiratory: no symptoms, dyspnea Gastrointestinal: no symptoms Genitourinary: no symptoms Musculoskeletal: no symptoms Neurological: no symptoms Psychological: no symptoms Endocrine: no symptoms Hematological/Lymphatic: no symptoms Review of other systems All other systems reviewed and negative. Physical Exam Related Data Allergies: Coded Allergies: No Known Allergies (Unverified , 10/09/18) Triage Vital Signs Vital Signs Date Time Temp Pulse Resp B/P (MAP) Pulse Ox O2 Delivery O2 Flow Rate FiO2 01/05/20 08:13 99.3 88 20 144/78 98 Vital signs reviewed: Yes Physical Exam CONSTITUTIONAL Constitutional: well-developed, well-nourished, morbidly obese HENT HENT: normocephalic, atraumatic, oropharynx clear/moist, nose normal HENT L/R: left ext ear normal, right ext ear normal EYES Eyes: PERRL, conjunctivae normal NECK Neck: ROM normal PULMONARY Pulmonary: effort normal, breath sounds normal CARDIOVASCULAR Cardiovascular: regular rhythm, heart sounds normal, capillary refill normal, normal rate GASTROINTESTINAL Abdominal: soft, nontender, bowel sounds normal GENITOURINARY Genitourinary: exam deferred SKIN Skin: warm, dry MUSCULOSKELETAL Musculoskeletal: ROM normal NEUROLOGICAL Neurological: alert, oriented x 3, no gross motor or sensory deficits PSYCHOLOGICAL Psychological: mood/affect normal, judgement normal Results Laboratory Result Diagram: 01/05/20 0850 01/05/20 0850 Laboratory Laboratory Tests Test 01/05/20 12:57 01/05/20 12:51 01/05/20 08:50 Urine Color Yellow (YELLOW) Urine Clarity Clear (CLEAR) Urine pH 7 (5 - 7) Urine Specific [place] 1.020 (1.010-1.025) Urine Protein Negative (NEGATIVE) Urine Glucose (UA) Negative (NEGATIVE) Urine Ketones Negative (NEGATIVE) Urine Blood Negative (NEGATIVE) Urine Nitrite Negative (NEGATIVE) Urine Bilirubin Negative (NEGATIVE) Urine Urobilinogen 0.2 mg/dL (0.2 - 1) Urine Leukocyte Esterase Negative (NEGATIVE) Urine RBC None /HPF (0-5) Urine WBC 11-20 /HPF (0-5) Urine Epithelial Cells Few /LPF (NONE) Urine Bacteria Few /HPF (NONE) White Blood Count 9.18 x10e3/uL (4.8-10.8) Red Blood Count 4.93 x10e6/uL (4.3-5.7) Hemoglobin 14.7 g/dL (14.0-18.0) Hematocrit 47.0 % (38.2-49.6) Mean Corpuscular Volume 95.3 fL (81-99) Mean Corpuscular Hemoglobin 29.8 pg (28-32) Mean Corpuscular Hemoglobin Concent 31.3 g/dL (31-35) Red Cell Distribution Width 14.1 % (11.7-14.4) Platelet Count 368 x10e3/uL (140-360) Neutrophils (%) (Auto) 65.4 % (38.7-80.0) Lymphocytes (%) (Auto) 24.0 % (18.0-39.1) Monocytes (%) (Auto) 7.1 % (4.4-11.3) Eosinophils (%) (Auto) 2.8 % (0.0-6.0) Basophils (%) (Auto) 0.3 % (0.0-1.0) Neutrophils # (Auto) 6.0 (2.1-6.9) Lymphocytes # (Auto) 2.2 (1.0-3.2) Monocytes # (Auto) 0.7 (0.2-0.8) Eosinophils # (Auto) 0.3 (0.0-0.4) Basophils # (Auto) 0.0 (0.0-0.1) Absolute Immature Granulocyte (auto 0.04 x10e3/uL (0-0.1) Sodium Level 138 mmol/L (136-145) Potassium Level 4.1 mmol/L (3.5-5.1) Chloride Level 107 mmol/L (98-107) Carbon Dioxide Level 23 mmol/L (22-29) Anion Gap 12.1 mmol/L (8-16) Blood Urea Nitrogen 13 mg/dL (7-26) Creatinine 0.88 mg/dL (0.72-1.25) Estimat Glomerular Filtration Rate > 60 ML/MIN (60-) BUN/Creatinine Ratio 15 (6-25) Glucose Level 103 mg/dL (74-118) Calcium Level 9.2 mg/dL (8.4-10.2) Total Bilirubin 0.5 mg/dL (0.2-1.2) Aspartate Amino Transf (AST/SGOT) 18 IU/L (5-34) Alanine Aminotransferase (ALT/SGPT) 24 IU/L (0-55) Alkaline Phosphatase 100 IU/L (40-150) Creatine Kinase 45 IU/L (30-200) Creatine Kinase MB 0.90 ng/mL (0-5.0) Troponin I < 0.001 ng/mL (0-0.300) Total Protein 7.9 g/dL (6.5-8.1) Albumin 3.4 g/dL (3.5-5.0) Globulin 4.5 g/dL (2.3-3.5) Albumin/Globulin Ratio 0.8 (0.8-2.0) Lipase 13 U/L (8-78) Lab results reviewed: Yes Imaging Imaging results reviewed: Yes Impressions IMPRESSION: 1. Contrast bolus timing is suboptimal. However, no central pulmonary embolus is seen. 2. No acute intrathoracic abnormality. 3. A left ureteropelvic junction stone measures 0.6 cm. No hydronephrosis. 4. A left lower pole nonobstructing stone is punctate. 5. There is either a pulmonary nodule or mucous plugging in the right middle lobe which measures 0.4 cm. If the patient is at increased risk for lung cancer, an optional follow-up chest CT can be obtained in 12 months. Otherwise, no CT follow-up is necessary. Procedures 12 Lead ECG Interpretation Prior CHEMISTRY QUALITY CONTROL TECHNICIAN tracings: reviewed Rhythm: sinus rhythm Rate: normal QRS axis: normal Other findings: no other findings Clinical Impression: normal ECG Critical Care Time Subsequent provider I assumed direction of critical care for this patient from another provider of my specialty. Assessment & Plan Assessment & Plan Final Impression: (1) CHEST PAIN, UNSPECIFIED Assessment & Plan 44 to the ED with nonspecific chest pain and shortness of breath. Patient received a CT scan of his chest to ensure no pulmonary embolus. CT chest unremarkable for any pathology. Patient also received a CT of his abdomen and pelvis as reviewed to complain of epigastric pain and nausea during his ER stay. CT showed no surgical process but showed a 6 mm stone. Patient denied any flank pain. Patient's urinalysis showed no leuk esterase or nitrates. This is stable for DC, Clovid swab done in the ER at patient's request. Patient and family updated numerous times about plan, expressed understanding outpatient cardiology follow-up given further workup and management. Depart Disposition: HOME, SELF-CARE Last Vital Signs Date Time Temp Pulse Resp B/P (MAP) Pulse Ox O2 Delivery O2 Flow Rate FiO2 01/05/20 11:28 98.3 79 18 114/67 99 Home Meds Active Scripts Tramadol Hcl (ULTRAM) 50 Mg Tablet, 50 MG PO Q6HR PRN for Mild Pain (1-3) or Fever>100.8, #14 TAB Prov:SANDHIR, AMBICA, DO 01/05/20 Tamsulosin Hcl* (FLOMAX*) 0.4 Mg Cap, 0.4 MG PO DAILY, #10 CAP 0 Refills Prov:SANDHIR, AMBICA, DO 01/05/20 Medications in the ED Fluorescein Sodium 1 mg ONCE ONCE OP ; Start 01/05/20 at 12:30; Stop 01/05/20 at 12:31; Status DC Sodium Chloride 50 ml @ ud STK-MED ONCE .ROUTE ; Start 01/05/20 at 14:14; Stop 01/05/20 at 14:09; Status DC Iopamidol 74,000 mg STK-MED ONCE INJ ; Start 01/05/20 at 14:14; Stop 01/05/20 at 14:09; Status DC RUTHY BROWN DO Jan 05, 2020 14:46
== END 2020-01-05 13:59 | disposition home or self-care (01) ==
LOC: ER 08:10
DX: R06.02 Shortness of breath (principal); R11.0 Nausea; R10.13 Epigastric pain; R07.9 Chest pain, unspecified; R53.81 Other malaise
CPT/HCPCS: 36415; 71260; 74177; 80053; 81001; 82550; 82553; 83690; 84484; 85025; 87635; 93005; 99284; Q9967

== ENCOUNTER 2020-11-16 20:53 | Emergency (ER) | payer BC ==
[~2020-11-16] VITALS: Ht 170.2 cm; Wt 142.9 kg
[~2020-11-16 20:53] MED LIST: FLOMAX0.4 MG PO; ULTRAM50 MG PO
[2020-11-16] MEDS ORDERED: SODIUM CHLORIDE 0.9% 1000ML 1,000 ML IV STA (21:19)
[2020-11-16] MEDS ORDERED: ASPIRIN 81 MG CHEW TAB PO ONE (21:30)
[2020-11-16] MEDS ORDERED: ACETAMINOPHEN 325 MG TAB PO ONE (21:30)
[2020-11-16] MEDS ORDERED: NITROGLYCERIN 2% OINT 1 GM PKT TOP ONE (21:30)
[2020-11-16] MEDS ORDERED: ONDANSETRON HCL INJ 2MG/ML 2ML 2 MG/ML VIAL IV ONE (21:30)
[2020-11-16] MEDS ORDERED: FAMOTIDINE 20 MG/2 ML VIAL IV ONE ×2 (21:30→21:36)
[2020-11-16] MEDS ORDERED: ASPIRIN 325 MG TAB ONE (21:35)
[2020-11-16] MEDS ORDERED: NITROGLYCERIN 2% OINT 1 GM PKT ONE (21:36)
[2020-11-16] MEDS ORDERED: ACETAMINOPHEN 325 MG TAB ONE (21:36)
[2020-11-16] MEDS ORDERED: ONDANSETRON HCL INJ 2MG/ML 2ML 2 MG/ML VIAL ONE (21:36)
[2020-11-16] MEDS ORDERED: SODIUM CHLORIDE 0.9% 1000ML 1,000 ML ONE (21:36)
[2020-11-16] MEDS ORDERED: OMEPRAZOLE40 MG PO (22:12)
[2020-11-16] MEDS ORDERED: ATENOLOL50 MG PO (22:12)
[2020-11-16] MEDS ORDERED: ZOFRAN4 MG PO (22:12)
== END 2020-11-16 22:25 | disposition home or self-care (01) ==
LOC: FSED 21:20
DX: R07.9 Chest pain, unspecified (principal); R00.0 Tachycardia, unspecified; I10 Essential (primary) hypertension; R11.2 Nausea with vomiting, unspecified; G47.33 Obstructive sleep apnea (adult) (pediatric)
CPT/HCPCS: 71046; 80048; 80076; 82553; 84484; 85025; 93005; 99284; J2405; J7030

== ENCOUNTER 2021-08-13 20:20 | Emergency (ER) | payer BC ==
[~2021-08-13] VITALS: Ht 170.2 cm; Wt 154.2 kg
[~2021-08-13 20:20] MED LIST changes: +ATENOLOL50 MG PO; +OMEPRAZOLE40 MG PO; +ZOFRAN4 MG PO
[2021-08-13] MEDS ORDERED: CYCLOBENZAPRINE5 MG PO (21:45)
== END 2021-08-13 22:07 | disposition home or self-care (01) ==
LOC: FSED 20:50
DX: R07.9 Chest pain, unspecified (principal); G47.33 Obstructive sleep apnea (adult) (pediatric); L40.9 Psoriasis, unspecified; E66.01 Morbid (severe) obesity due to excess calories
CPT/HCPCS: 71045; 80053; 82553; 84484; 85025; 93005; 99284